=== PATIENT | female | born 1970 | race Caucasian/White ===

== ENCOUNTER 2017-12-13 16:55 | Inpatient (IN) | payer OTHER ==
[2017-12-13 18:28] VITALS: BMI 22.6
--- NOTE | 2017-12-13 20:38 | HP ---
Admission ROS [facility] Chief Complaint: Alcohol withdrawal symptoms Allergies/Adverse Reactions: Allergies Allergy/AdvReac Type Severity Reaction Status Date / Time Penicillins Allergy Rash Verified 12/13/17 19:45 History of Present Illness: 47 years old female with a long history of alcohol dependence is seeking admission to detox. Patient has been to previous detox, last at [facility] in [place] and reports 10 years of sobriety. She has past medical history of asthma, CHF, HTN, seizures, hyperlipidemia, fibromyalgia, anemia, depression and anxiety. She reports suicide attempt in 1990, 1998 and 2013. She denies suicidal ideation at this time. Patient is on methadone 20mg tablet oral daily at [facility]. LDM is today. Dose is to be verified by the nurse. Exam Limitations: No Limitations - Ebola screening Have you traveled outside of the country in the last 21 days: No (N) Have you had contact with anyone from an Ebola affected area: No Have you been sick,other than usual withdrawal symptoms: No Do you have a fever: No - Review of Systems Constitutional: Chills, Loss of Appetite, Malaise, Changes in sleep, Weakness EENT: reports: Sinus Pressure Respiratory: reports: No Symptoms reported Cardiac: reports: No Symptoms Reported GI: reports: Diarrhea (x 2), Nausea, Poor Appetite, Poor Fluid Intake, Vomiting (x 3) : reports: No Symptoms Reported Musculoskeletal: reports: Back Pain Integumentary: reports: Dryness Neuro: reports: Tremors Endocrine: reports: No Symptoms Reported Hematology: reports: Easy Bruising Psychiatric: reports: Anxious, Depressed Other Systems: Reviewed and Negative Patient History - Patient Medical History Hx Asthma: Yes (Pt is on Albuterol IH/SYmbicort) Hx Chronic Obstructive Pulmonary Disease (COPD): No Hx Cancer: No Hx Cardiac Disorders: Yes (CHF) Hx Congestive Heart Failure: Yes (Metoprolol) Hx Hypertension: Yes (Lisinopril, Carvedilol, Metoprolol) Hx Hypercholesterolemia: Yes Hx Seizures: Yes (2013 -Gabapentin) Hx Diabetes: No Hx Gastrointestinal Disorders: No Hx Genitourinary Disorders: No Hx Sexually Transmitted Disorders: Yes (PID - Treated) Hx Renal Disease (ESRD): No Hx Thyroid Disease: No Hx Human Immunodeficiency Virus (HIV): No (Negative 2016) Hx Hepatitis C: No Hx Depression: Yes (Vistaril, Seroquel) Hx Suicide Attempt: Yes (Attempt in 1990, 1998 & 2013. Denies suicidal ideation at this time) Hx Bipolar Disorder: Yes (Seroquel) Hx Schizophrenia: No Other Medical History: Anxiety - Vistaril, Seroquel - Patient Surgical History Past Surgical History: Yes Hx Neurologic Surgery: No Hx Cataract Extraction: No Hx Cardiac Surgery: No Hx Lung Surgery: No Hx Breast Surgery: No Hx Breast Biopsy: No Hx Abdominal Surgery: No Hx Appendectomy: No Hx Cholecystectomy: Yes (2002) Hx Genitourinary Surgery: No Hx Section: Yes (1983, 1987 and 1990) Hx Orthopedic Surgery: No Other Surgical History: TUBAL LIGATION- 1990 Anesthesia Reaction: No - PPD History Previous Implant?: Yes Documented Results: Negative w/o proof Implanted On Prior [facility] Admission?: No PPD to be Administered?: Yes - Reproductive History Patient is a Female of Child Bearing Age (11 -55 yrs old): Yes Last Menstrual Period: 11/30/17 - Smoking Cessation Smoking history: Current every day smoker Have you smoked in the past 12 months: Yes Aproximately how many cigarettes per day: 10 Hx Chewing Tobacco Use: No Initiated information on smoking cessation: Yes 'Breaking Loose' booklet given: 12/13/17 - Substance & Tx. History Hx Alcohol Use: Yes Substance Use Type: Alcohol, Cocaine, Marijuana Hx Substance Use Treatment: Yes ([facility]) - Substances Abused Alcohol Route: Oral Frequency: Daily Amount used: Vodka 3-4 pints, Beer 2-6 cans Age of first use: 28 Date of Last Use: 12/13/17 Crack Route: Smoking Frequency: 1-3 times last 30 days Amount used: $20 Age of first use: 43 Date of Last Use: 12/13/17 Family Disease History - Family Disease History Family Disease History: Diabetes: Mother, Heart Disease: Father (ASTHMA, COPD), Mother, Respiratory: Father Admission Physical Exam S - Vital Signs Vital Signs: Vital Signs - 24 hr 12/13/17 18:23 Temperature 97.5 F L Pulse Rate 86 Respiratory 20 Rate Blood Pressure 130/86 - Physical General Appearance: Yes: Moderate Distress, Thin, Tremorous, Irritable, Sweating , Anxious HEENTM: Yes: EOMI, Normal ENT Inspection, Normocephalic, Normal Voice, TJ, Microcephalic Respiratory: Yes: Normal Breath Sounds, No Respiratory Distress Neck: Yes: Supple Breast: Yes: Breast Exam Deferred Cardiology: Yes: Regular Rhythm, Regular Rate, S1, S2 Abdominal: Yes: Normal Bowel Sounds, Soft Genitourinary: Yes: Within Normal Limits Back: Yes: Normal Inspection Musculoskeletal: Yes: Back pain, Muscle Pain, Muscle weakness Extremities: Yes: Tremors Neurological: Yes: Alert, Normal Mood/Affect Integumentary: Yes: Warm Lymphatic: Yes: Within Normal Limits - Diagnostic (1) Alcohol dependence with uncomplicated withdrawal Current Visit: Yes Status: Chronic (2) Cocaine dependence, uncomplicated Current Visit: Yes Status: Chronic (3) Cannabis dependence, uncomplicated Current Visit: Yes Status: Chronic (4) Sedative, hypnotic or anxiolytic dependence with withdrawal, uncomplicated Current Visit: Yes Status: Chronic (5) HTN (hypertension) Current Visit: Yes Status: Acute (6) Hyperlipidemia Current Visit: Yes Status: Chronic (7) CHF (congestive heart failure) Current Visit: Yes Status: Acute (8) Asthma Current Visit: Yes Status: Acute (9) Depression Current Visit: Yes Status: Chronic (10) Anxiety Current Visit: Yes Status: Chronic (11) Fibromyalgia Current Visit: Yes Status: Chronic (12) Anemia Current Visit: Yes Status: Chronic Qualifiers: Vitamin B12 deficiency anemia type: unspecified B12 deficiency (13) Seizure Current Visit: Yes Status: Chronic BHS Breath Alcohol Content Breath Alcohol Content: 0 Urine Drug Screen - Results Drug Screen Negative: No Urine Drug Screen Results: THC-Marijuana, ALICIA-Cocaine, BZO-Benzodiazepines, MTD- Methadone
[2017-12-13] MEDS ORDERED: chlordiazePOXIDE HCL 25 MG CAPSULE PO PRN (21:15)
[2017-12-13] MEDS ORDERED: guaiFENesin/D-METHORPHAN HB 10 ML UNIT-DOSE CUPS PO PRN (21:15)
[2017-12-13] MEDS ORDERED: MAGNESIUM CITRATE 300 ML BOTTLE PO PRN (21:15)
[2017-12-13] MEDS ORDERED: MENTHOL/PHENOL 1 EACH UD MM PRN (21:15)
[2017-12-13] MEDS ORDERED: MAGNESIUM HYDROX 2400MG/30ML ORAL SUSPENSION 30 ML CUP PO PRN (21:15)
[2017-12-13] MEDS ORDERED: LOPERAMIDE HCL 2 MG CAPSULE PO PRN (21:15)
[2017-12-13] MEDS ORDERED: ACETAMINOPHEN 325 MG TABLET (FP) PO PRN (21:15)
[2017-12-13] MEDS ORDERED: MAG HYDROX/AL HYDROX/SIMETH 30 ML UNIT-DOSE CUP PO PRN (21:15)
[2017-12-13] MEDS ORDERED: P-EPHED 60MG/TRIPROLIDI 2.5MG TABLET PO PRN (21:15)
[2017-12-13] MEDS ORDERED: ALBUTEROL SO4 8 GM HFA INHALER IH PRN (21:17)
[2017-12-13] MEDS ORDERED: MELATONIN 5 MG TABLETS PO PRN (22:00)
[2017-12-13] MEDS: METOPROLOL TARTRATE 25 MG TABLET (FP) PO SCH (22:34)
[2017-12-13] MEDS: THIAMINE HCL 100 MG TABLET (FP) PO SCH (22:35)
[2017-12-13] MEDS: ATORVASTATIN CA 80 MG TABLET (FP) PO SCH (22:35)
[2017-12-13] MEDS: chlordiazePOXIDE HCL 25 MG CAPSULE PO SCH (22:35)
[2017-12-13] MEDS: BUDESONIDE/FORMETEROL FUMARATE 160/4.5 mcg INHALER IH SCH (22:39)
[2017-12-13 23:12] LABS: URINE APPEARANCE SLCLOUDY; URINE BILIRUBIN NEGATIVE (<2.0 mg/dL); URINE COLOR YELLOW; URINE GLUCOSE (UA) NEGATIVE (NEGATIVE); URINE KETONE TRACE (NEGATIVE); URINE LEUK ESTERASE NEGATIVE (NEGATIVE); URINE NITRITE NEGATIVE (NEGATIVE); URINE PROTEIN NEGATIVE (NEGATIVE); URINE UROBILINOGEN NEGATIVE mg/dL (0.2-1.0)
--- NOTE | 2017-12-13 23:33 | HP ---
Admission ROS [facility] Allergies/Adverse Reactions: Allergies Allergy/AdvReac Type Severity Reaction Status Date / Time Penicillins Allergy Rash Verified 12/13/17 19:45 - Ebola screening Have you traveled outside of the country in the last 21 days: No (N) Have you had contact with anyone from an Ebola affected area: No Have you been sick,other than usual withdrawal symptoms: No Do you have a fever: No Patient History - Patient Medical History Hx Asthma: Yes (Pt is on Albuterol IH/SYmbicort) Hx Chronic Obstructive Pulmonary Disease (COPD): No Hx Cancer: No Hx Cardiac Disorders: Yes (CHF) Hx Congestive Heart Failure: Yes (Metoprolol) Hx Hypertension: Yes (Lisinopril, Carvedilol, Metoprolol) Hx Hypercholesterolemia: Yes Hx Seizures: Yes (2013 -Gabapentin) Hx Diabetes: No Hx Gastrointestinal Disorders: No Hx Genitourinary Disorders: No Hx Sexually Transmitted Disorders: Yes (PID - Treated) Hx Renal Disease (ESRD): No Hx Thyroid Disease: No Hx Human Immunodeficiency Virus (HIV): No (Negative 2016) Hx Hepatitis C: No Hx Depression: Yes (Vistaril, Seroquel) Hx Suicide Attempt: Yes (Attempt in 1990, 1998 & 2013. Denies suicidal ideation at this time) Hx Bipolar Disorder: Yes (Seroquel) Hx Schizophrenia: No Other Medical History: Anxiety - Vistaril, Seroquel - Patient Surgical History Past Surgical History: Yes Hx Neurologic Surgery: No Hx Cataract Extraction: No Hx Cardiac Surgery: No Hx Lung Surgery: No Hx Breast Surgery: No Hx Breast Biopsy: No Hx Abdominal Surgery: No Hx Appendectomy: No Hx Cholecystectomy: Yes (2002) Hx Genitourinary Surgery: No Hx Section: Yes (1983, 1987 and 1990) Hx Orthopedic Surgery: No Other Surgical History: TUBAL LIGATION- 1990 Anesthesia Reaction: No - PPD History Previous Implant?: Yes Documented Results: Negative w/o proof Implanted On Prior [facility] Admission?: No Date: 12/15/17 - Reproductive History Last Menstrual Period: 11/30/17 - Smoking Cessation Smoking history: Current every day smoker Have you smoked in the past 12 months: Yes Aproximately how many cigarettes per day: 10 Hx Chewing Tobacco Use: No Initiated information on smoking cessation: Yes - Substances Abused Alcohol Route: Oral Frequency: Daily Amount used: Vodka 3-4 pints, Beer 2-6 cans Age of first use: 28 Date of Last Use: 12/13/17 Crack Route: Smoking Frequency: 1-3 times last 30 days Amount used: $20 Age of first use: 43 Date of Last Use: 12/13/17 Family Disease History - Family Disease History Family Disease History: Diabetes: Mother, Heart Disease: Father (ASTHMA, COPD), Mother, Respiratory: Father Admission Physical Exam BHS - Vital Signs Vital Signs: Vital Signs - 24 hr 12/13/17 12/13/17 18:23 22:14 Temperature 97.5 F L 96.3 F L Pulse Rate 86 94 H Respiratory 20 18 Rate Blood Pressure 130/86 117/72 - Diagnostic (1) Alcohol dependence with uncomplicated withdrawal Current Visit: Yes Status: Chronic (2) Cocaine dependence, uncomplicated Current Visit: Yes Status: Chronic (3) Cannabis dependence, uncomplicated Current Visit: Yes Status: Chronic (4) Sedative, hypnotic or anxiolytic dependence with withdrawal, uncomplicated Current Visit: Yes Status: Chronic (5) HTN (hypertension) Current Visit: Yes Status: Acute (6) Hyperlipidemia Current Visit: Yes Status: Chronic (7) CHF (congestive heart failure) Current Visit: Yes Status: Acute (8) Asthma Current Visit: Yes Status: Acute (9) Depression Current Visit: Yes Status: Chronic (10) Anxiety Current Visit: Yes Status: Chronic (11) Fibromyalgia Current Visit: Yes Status: Chronic (12) Anemia Current Visit: Yes Status: Chronic Qualifiers: Vitamin B12 deficiency anemia type: unspecified B12 deficiency (13) Seizure Current Visit: Yes Status: Chronic BHS Breath Alcohol Content Breath Alcohol Content: 0 Urine Drug Screen - Results Drug Screen Negative: No Urine Drug Screen Results: THC-Marijuana, ALICIA-Cocaine, BZO-Benzodiazepines, MTD- Methadone
[2017-12-13] MEDS: CARVEDILOL 3.125 MG TABLET (FP) PO SCH (23:55)
[2017-12-14] MEDS: chlordiazePOXIDE HCL 25 MG CAPSULE PO SCH ×4 (06:00→23:59)
[2017-12-14] MEDS ORDERED: MULTIVITAMINS (DAILY MVI) TABLET (FP) PO SCH (10:00)
[2017-12-14] MEDS ORDERED: METHADONE HCL 10 MG TABLET PO ONE (10:00)
--- NOTE | 2017-12-14 10:11 | CONSULT ---
[facility] Psychiatric Consult - Data Date of interview: 12/14/17 Admission source: [facility] Identifying data: This is 47 years old female, , mother of THree, homeless, with psychiatric hospitalization history, history of suicidal attempts , with a long history of alcohol dependence, Crack, Cannabis and Nicotine dependence as well, reports withdrawal symptoms amd seeking for detox. Substance Abuse History: - Smoking Cessation. Smoking history: Current every day smoker. Have you smoked in the past 12 months: Yes. Aproximately how many cigarettes per day: 10. Hx Chewing Tobacco Use: No. Initiated information on smoking cessation: Yes. 'Breaking Loose' booklet given: 12/13/17. - Substance & Tx. History. Hx Alcohol Use: Yes. Substance Use Type: Alcohol, Cocaine, Marijuana. Hx Substance Use Treatment: Yes ([facility] - Substances Abused. Alcohol. Route: Oral. Frequency: Daily. Amount used: Vodka 3-4 pints, Beer 2-6 cans. Age of first use: 28. Date of Last Use: . Crack. Route: Smoking. Frequency: 1-3 times last 30 days. Amount used : $20. Age of first use: 43. Date of Last Use: 12/13/17 Medical History: Seizure history, Anemia history, HTN, CHF, Asthma, Hyperlipidemia, Psychiatric History: Patient suffers with Bipolar disorder, reports history of multiple suicidal attempts with last one on 2013 by OD, denies suicidal history since then, reports most recent psychiatric unclear admission on about more then 10 years ago, reports currently taking: Seroquel 100mg po qhs. Topamax 50mg po qhs. Vistaril 50mg po prn qid Physical/Sexual Abuse/Trauma History: Denies Additional Comment: Seroquel 100mg po qhs. Topamax 50mg po qhs. Vistaril 50mg po prn qid Mental Status Exam - Mental Status Exam Alert and Oriented to: Person Cognitive Function: Fair Patient Appearance: Unkempt Mood: Suspicious, Anxious Affect: Labile Patient Behavior: Impulsive, Talkative Speech Pattern: Excessive Voice Loudness: Mildly Loud Thought Process: Circumstantial Thought Disorder: Being Controlled Hallucinations: Denies Suicidal Ideation: Denies Homicidal Ideation: Denies Insight/Judgement: Fair Sleep: Difficulty falling asleep Appetite: Weight loss Muscle strength/Tone: Mild Hypotonicity Gait/Station: Shuffling Additional Comments: Seroquel 100mg po qhs. Topamax 50mg po qhs. Vistaril 50mg po prn qid Psychiatric Findings - Problem List ([place] 1, 2,3) (1) Bipolar disorder Current Visit: Yes Status: Acute (2) Asthma Current Visit: Yes Status: Acute (3) CHF (congestive heart failure) Current Visit: Yes Status: Acute (4) HTN (hypertension) Current Visit: Yes Status: Acute (5) Seizure activity as manifestation of blood transfusion reaction Current Visit: Yes Status: Acute (6) Anemia Current Visit: Yes Status: Chronic Qualifiers: Vitamin B12 deficiency anemia type: unspecified B12 deficiency (7) Cannabis dependence, uncomplicated Current Visit: Yes Status: Chronic (8) Cocaine dependence, uncomplicated Current Visit: Yes Status: Chronic (9) Depression Current Visit: Yes Status: Chronic (10) Fibromyalgia Current Visit: Yes Status: Chronic (11) Sedative, hypnotic or anxiolytic dependence with withdrawal, uncomplicated Current Visit: Yes Status: Chronic (12) Seizure Current Visit: Yes Status: Chronic - Initial Treatment Plan Initial Treatment Plan: Seroquel 100mg po qhs. Topamax 50mg po qhs. Vistaril 50mg po prn qid
[2017-12-14 10:18] LABS: ALBUMIN 3.5 g/dl (3.4-5.0); ANION GAP 6 (8-16); BLOOD UREA NITROGEN 17 mg/dL (7-18); CALCIUM 8.9 mg/dL (8.5-10.1); CHLORIDE 106 mmol/L (98-107); CO2 28 mmol/L (21-32); GLUCOSE,RANDOM 82 mg/dL (74-106); POTASSIUM 4.3 mmol/L (3.5-5.1); SGOT/AST 16 U/L (15-37); SGPT/ALT 18 U/L (12-78); SODIUM 140 mmol/L (136-145)
[2017-12-14 10:19] LABS: HEMATOCRIT 40.1 % (32.4-45.2); HEMOGLOBIN 13.4 GM/dL (10.7-15.3); MCH 30.4 pg (25.7-33.7); MCHC 33.5 g/dl (32.0-36.0); MEAN CELL VOLUME 90.7 fl (80-96); MEAN PLT VOLUME 9.7 fl (7.5-11.1); PLATELET COUNT 254 K/MM3 (134-434); RBC 4.42 M/mm3 (3.60-5.2); RDW 14.6 % (11.6-15.6); WHITE BLOOD COUNT 8.8 K/mm3 (4.0-10.0)
[2017-12-14 10:20] LABS: ALK PHOS 66 U/L (45-117); BILIRUBIN,TOTAL 0.3 mg/dL (0.2-1.0); TOT PROT 6.9 g/dl (6.4-8.2)
[2017-12-14] MEDS: ASPIRIN 81 MG CHEWABLE TABLETS PO SCH (10:45)
[2017-12-14] MEDS: PRENATAL VITAMINS W/ FOLIC ACID TABLET (FP) PO SCH (10:45)
[2017-12-14] MEDS: hydrOXYzine PAMOATE 50 MG CAPSULE (FP) PO SCH ×3 (10:45→18:55)
[2017-12-14] MEDS: CYANOCOBALAMIN 1,000 MCG TABLET (FP) PO SCH (10:45)
[2017-12-14] MEDS: METOPROLOL TARTRATE 25 MG TABLET (FP) PO SCH ×2 (10:45→23:59)
[2017-12-14] MEDS: LISINOPRIL 10 MG TABLET (FP) PO SCH (10:45)
[2017-12-14] MEDS: CARVEDILOL 3.125 MG TABLET (FP) PO SCH ×2 (10:45→23:59)
--- NOTE | 2017-12-14 10:45 | PN ---
[facility] CIWA - CIWA Score Nausea/Vomitin Muscle Tremors: 3 Anxiety: 3 Agitation: 2 Paroxysmal Sweats: 1-Minimal Palms Moist Orientation: 0-Oriented Tacttile Disturbances: 1-Very Mild Itch/Numbness Auditory Disturbances: 1-Very Mild Visual Disturbances: 2-Mild Sensitivity Headache: 2-Mild CIWA-Ar Total Score: 18 BHS Progress Note (SOAP) Subjective: alert,irritable,anxious,interrupted sleep,tremor,pain in the body Objective: 12/14/17 10:42 Vital Signs Temperature 97.5 F L 12/14/17 09:55 Pulse Rate 89 12/14/17 09:55 Respiratory Rate 17 12/14/17 09:55 Blood Pressure 109/72 12/14/17 09:55 O2 Sat by Pulse Oximetry (%) ekg nsr with marked sinus arrhythmia qt 404/432 no chest pain,no sob,no dizziness Laboratory Last Values WBC 8.8 K/mm3 (4.0-10.0) 12/14/17 07:00 RBC 4.42 M/mm3 (3.60-5.2) 12/14/17 07:00 Hgb 13.4 GM/dL (10.7-15.3) 12/14/17 07:00 Hct 40.1 % (32.4-45.2) 12/14/17 07:00 MCV 90.7 fl (80-96) 12/14/17 07:00 MCH 30.4 pg (25.7-33.7) 12/14/17 07:00 MCHC 33.5 g/dl (32.0-36.0) 12/14/17 07:00 RDW 14.6 % (11.6-15.6) 12/14/17 07:00 Plt Count 254 K/MM3 (134-434) 12/14/17 07:00 MPV 9.7 fl (7.5-11.1) 12/14/17 07:00 Sodium 140 mmol/L (136-145) 12/14/17 07:00 Potassium 4.3 mmol/L (3.5-5.1) 12/14/17 07:00 Chloride 106 mmol/L (98-107) 12/14/17 07:00 Carbon Dioxide 28 mmol/L (21-32) 12/14/17 07:00 Anion Gap 6 (8-16) L 12/14/17 07:00 BUN 17 mg/dL (7-18) 12/14/17 07:00 Creatinine 1.0 mg/dL (0.55-1.02) 12/14/17 07:00 Creat Clearance w eGFR 58.93 (>60) 12/14/17 07:00 Random Glucose 82 mg/dL (74-106) 12/14/17 07:00 Calcium 8.9 mg/dL (8.5-10.1) 12/14/17 07:00 Total Bilirubin 0.3 mg/dL (0.2-1.0) 12/14/17 07:00 AST 16 U/L (15-37) 12/14/17 07:00 ALT 18 U/L (12-78) 12/14/17 07:00 Alkaline Phosphatase 66 U/L (45-117) 12/14/17 07:00 Total Protein 6.9 g/dl (6.4-8.2) 12/14/17 07:00 Albumin 3.5 g/dl (3.4-5.0) 12/14/17 07:00 Urine Color Yellow 12/13/17 Unknown Urine Appearance Slcloudy 12/13/17 Unknown Urine pH 5.0 (5.0-8.0) 12/13/17 Unknown Ur Specific [place] 1.018 (1.001-1.035) 12/13/17 Unknown Urine Protein Negative (NEGATIVE) 12/13/17 Unknown Urine Glucose (UA) Negative (NEGATIVE) 12/13/17 Unknown Urine Ketones Trace (NEGATIVE) H 12/13/17 Unknown Urine Blood Negative (NEGATIVE) 12/13/17 Unknown Urine Nitrite Negative (NEGATIVE) 12/13/17 Unknown Urine Bilirubin Negative (<2.0 mg/dL) 12/13/17 Unknown Urine Urobilinogen Negative mg/dL (0.2-1.0) 12/13/17 Unknown Ur Leukocyte Esterase Negative (NEGATIVE) 12/13/17 Unknown Assessment: 12/14/17 10:44 withdrawal symptom Plan: continue detox
[2017-12-14] MEDS: BUDESONIDE/FORMETEROL FUMARATE 160/4.5 mcg INHALER IH SCH (10:46)
[2017-12-14] MEDS: NICOTINE 14 MG/24 HOURS TOPICAL PATCH TD SCH (10:46)
--- NOTE | 2017-12-14 16:22 | EKG ---
Test Reason : Blood Pressure : / mmHG Vent. Rate : 069 BPM Atrial Rate : 069 BPM P-R Int : 128 ms QRS Dur : 088 ms QT Int : 404 ms P-R-T Axes : 075 053 048 degrees QTc Int : 432 ms SINUS RHYTHM WITH MARKED SINUS ARRHYTHMIA OTHERWISE NORMAL ECG NO PREVIOUS ECGS AVAILABLE Confirmed by LEE CONTI, POOJA ([id number]) on 12/14/2017 4:21:56 PM Referred By: Confirmed By:POOJA HOWARD MD
[2017-12-14] MEDS: ATORVASTATIN CA 80 MG TABLET (FP) PO SCH (23:59)
[2017-12-15] MEDS: chlordiazePOXIDE HCL 25 MG CAPSULE PO SCH ×3 (05:25→17:18)
[2017-12-15] MEDS: METHADONE HCL 10 MG TABLET PO SCH (05:25)
--- NOTE | 2017-12-15 09:45 | PN ---
[facility] CIWA - CIWA Score Nausea/Vomitin Muscle Tremors: 2 Anxiety: 2 Agitation: 3 Paroxysmal Sweats: 1-Minimal Palms Moist Orientation: 0-Oriented Tacttile Disturbances: 1-Very Mild Itch/Numbness Auditory Disturbances: 1-Very Mild Visual Disturbances: 0-None Headache: 2-Mild CIWA-Ar Total Score: 15 BHS Progress Note (SOAP) Subjective: ALERT,IRRITABLE,ANXIOUS,INTERRUPTED SLEEP,TREMOR Objective: 12/15/17 09:43 Vital Signs Temperature 97.9 F 12/15/17 06:37 Pulse Rate 80 12/15/17 06:37 Respiratory Rate 18 12/15/17 06:37 Blood Pressure 115/61 12/15/17 06:37 O2 Sat by Pulse Oximetry (%) Laboratory Last Values WBC 8.8 K/mm3 (4.0-10.0) 12/14/17 07:00 RBC 4.42 M/mm3 (3.60-5.2) 12/14/17 07:00 Hgb 13.4 GM/dL (10.7-15.3) 12/14/17 07:00 Hct 40.1 % (32.4-45.2) 12/14/17 07:00 MCV 90.7 fl (80-96) 12/14/17 07:00 MCH 30.4 pg (25.7-33.7) 12/14/17 07:00 MCHC 33.5 g/dl (32.0-36.0) 12/14/17 07:00 RDW 14.6 % (11.6-15.6) 12/14/17 07:00 Plt Count 254 K/MM3 (134-434) 12/14/17 07:00 MPV 9.7 fl (7.5-11.1) 12/14/17 07:00 Sodium 140 mmol/L (136-145) 12/14/17 07:00 Potassium 4.3 mmol/L (3.5-5.1) 12/14/17 07:00 Chloride 106 mmol/L (98-107) 12/14/17 07:00 Carbon Dioxide 28 mmol/L (21-32) 12/14/17 07:00 Anion Gap 6 (8-16) L 12/14/17 07:00 BUN 17 mg/dL (7-18) 12/14/17 07:00 Creatinine 1.0 mg/dL (0.55-1.02) 12/14/17 07:00 Creat Clearance w eGFR 58.93 (>60) 12/14/17 07:00 Random Glucose 82 mg/dL (74-106) 12/14/17 07:00 Calcium 8.9 mg/dL (8.5-10.1) 12/14/17 07:00 Total Bilirubin 0.3 mg/dL (0.2-1.0) 12/14/17 07:00 AST 16 U/L (15-37) 12/14/17 07:00 ALT 18 U/L (12-78) 12/14/17 07:00 Alkaline Phosphatase 66 U/L (45-117) 12/14/17 07:00 Total Protein 6.9 g/dl (6.4-8.2) 12/14/17 07:00 Albumin 3.5 g/dl (3.4-5.0) 12/14/17 07:00 Urine Color Yellow 12/13/17 Unknown Urine Appearance Slcloudy 12/13/17 Unknown Urine pH 5.0 (5.0-8.0) 12/13/17 Unknown Ur Specific [place] 1.018 (1.001-1.035) 12/13/17 Unknown Urine Protein Negative (NEGATIVE) 12/13/17 Unknown Urine Glucose (UA) Negative (NEGATIVE) 12/13/17 Unknown Urine Ketones Trace (NEGATIVE) H 12/13/17 Unknown Urine Blood Negative (NEGATIVE) 12/13/17 Unknown Urine Nitrite Negative (NEGATIVE) 12/13/17 Unknown Urine Bilirubin Negative (<2.0 mg/dL) 12/13/17 Unknown Urine Urobilinogen Negative mg/dL (0.2-1.0) 12/13/17 Unknown Ur Leukocyte Esterase Negative (NEGATIVE) 12/13/17 Unknown RPR Titer Nonreactive (NONREACTIVE) 12/14/17 07:00 HIV 1&2 Antibody Screen Negative 12/14/17 07:00 HIV P24 Antigen Negative 12/14/17 07:00 Assessment: 12/15/17 09:44 WITHDRAWAL SYMPTOM Plan: CONTINUE DETOX
[2017-12-15] MEDS: ASPIRIN 81 MG CHEWABLE TABLETS PO SCH (10:16)
[2017-12-15] MEDS: LISINOPRIL 10 MG TABLET (FP) PO SCH (10:17)
[2017-12-15] MEDS: PRENATAL VITAMINS W/ FOLIC ACID TABLET (FP) PO SCH (10:17)
[2017-12-15] MEDS: hydrOXYzine PAMOATE 50 MG CAPSULE (FP) PO SCH ×5 (10:17→22:23)
[2017-12-15] MEDS: BUDESONIDE/FORMETEROL FUMARATE 160/4.5 mcg INHALER IH SCH ×3 (10:17→22:25)
[2017-12-15] MEDS: METOPROLOL TARTRATE 25 MG TABLET (FP) PO SCH ×2 (10:17→23:25)
[2017-12-15] MEDS: CYANOCOBALAMIN 1,000 MCG TABLET (FP) PO SCH (10:17)
[2017-12-15] MEDS: CARVEDILOL 3.125 MG TABLET (FP) PO SCH ×2 (10:17→23:26)
[2017-12-15] MEDS: NICOTINE 14 MG/24 HOURS TOPICAL PATCH TD SCH (10:18)
[2017-12-15] MEDS: NICOTINE POLACRILEX 2 MG GUM BC PRN (10:21)
[2017-12-15] MEDS: chlordiazePOXIDE 5 MG CAPSULE PO SCH (22:20)
[2017-12-15] MEDS: QUEtiapine FUMARATE 100 MG TABLET (FP) PO SCH ×2 (22:22)
[2017-12-15] MEDS: TOPIRAMATE 25 MG TABLET (FP) PO SCH ×2 (22:22)
[2017-12-15] MEDS: THIAMINE HCL 100 MG TABLET (FP) PO SCH ×2 (22:22)
[2017-12-15] MEDS: ATORVASTATIN CA 80 MG TABLET (FP) PO SCH (22:23)
[2017-12-16] MEDS: chlordiazePOXIDE 5 MG CAPSULE PO SCH ×3 (05:49→17:23)
[2017-12-16] MEDS: METHADONE HCL 10 MG TABLET PO SCH (05:49)
[2017-12-16] MEDS: hydrOXYzine PAMOATE 50 MG CAPSULE (FP) PO SCH ×4 (10:11→22:06)
[2017-12-16] MEDS: CARVEDILOL 3.125 MG TABLET (FP) PO SCH ×2 (10:11→22:06)
[2017-12-16] MEDS: ASPIRIN 81 MG CHEWABLE TABLETS PO SCH (10:11)
[2017-12-16] MEDS: METOPROLOL TARTRATE 25 MG TABLET (FP) PO SCH ×2 (10:12→22:08)
[2017-12-16] MEDS: NICOTINE 14 MG/24 HOURS TOPICAL PATCH TD SCH (10:12)
[2017-12-16] MEDS: BUDESONIDE/FORMETEROL FUMARATE 160/4.5 mcg INHALER IH SCH ×2 (10:12→22:09)
[2017-12-16] MEDS: CYANOCOBALAMIN 1,000 MCG TABLET (FP) PO SCH (10:12)
[2017-12-16] MEDS: PRENATAL VITAMINS W/ FOLIC ACID TABLET (FP) PO SCH (10:12)
[2017-12-16] MEDS: LISINOPRIL 10 MG TABLET (FP) PO SCH (10:12)
[2017-12-16] MEDS: NICOTINE POLACRILEX 2 MG GUM BC PRN (10:16)
--- NOTE | 2017-12-16 16:33 | PN ---
BHS Progress Note (SOAP) Subjective: Sweats Sleep disturbance Shakes Objective: 12/16/17 16:32 A & O x 3 Not in acute distress 12/16/17 16:32 Vital Signs Temperature 98.1 F 12/16/17 15:03 Pulse Rate 81 12/16/17 15:03 Respiratory Rate 16 12/16/17 15:03 Blood Pressure 101/69 12/16/17 15:03 O2 Sat by Pulse Oximetry (%) Assessment: 12/16/17 16:32 Withdrawal sx Plan: continue detox
[2017-12-16] MEDS: TOPIRAMATE 25 MG TABLET (FP) PO SCH (22:07)
[2017-12-16] MEDS: chlordiazePOXIDE HCL 10 MG CAPSULE PO SCH (22:08)
[2017-12-16] MEDS: QUEtiapine FUMARATE 100 MG TABLET (FP) PO SCH (22:08)
[2017-12-16] MEDS: ATORVASTATIN CA 80 MG TABLET (FP) PO SCH (22:08)
[2017-12-16] MEDS: THIAMINE HCL 100 MG TABLET (FP) PO SCH (22:09)
[2017-12-17] MEDS: METHADONE HCL 10 MG TABLET PO SCH (06:05)
[2017-12-17] MEDS: chlordiazePOXIDE HCL 10 MG CAPSULE PO SCH ×2 (06:05→11:04)
--- NOTE | 2017-12-17 08:56 | DS ---
[facility] Detox Discharge Summary Admission Date: 12/13/17 Discharge Date: 12/17/17 - History Present History: Alcohol Dependence Additional Comments: 47 years old female admitted 12/13/17 for alcohol withdrawal sx completed alcohol detox regimen tolerated well denies alcohol withdrawal sx alert oriented x 3 no acute distress aftercare methadone maintenance program [facility] - Physical Exam Results Vital Signs: Vital Signs Temperature 98.1 F 12/17/17 06:00 Pulse Rate 79 12/17/17 06:00 Respiratory Rate 18 12/17/17 06:00 Blood Pressure 106/75 12/17/17 06:00 O2 Sat by Pulse Oximetry (%) Pertinent Admission Physical Exam Findings: alcohol withdrawal sx Vital Signs Temperature 98.1 F 12/17/17 06:00 Pulse Rate 79 12/17/17 06:00 Respiratory Rate 18 12/17/17 06:00 Blood Pressure 106/75 12/17/17 06:00 O2 Sat by Pulse Oximetry (%) Laboratory Last Values WBC 8.8 K/mm3 (4.0-10.0) 12/14/17 07:00 RBC 4.42 M/mm3 (3.60-5.2) 12/14/17 07:00 Hgb 13.4 GM/dL (10.7-15.3) 12/14/17 07:00 Hct 40.1 % (32.4-45.2) 12/14/17 07:00 MCV 90.7 fl (80-96) 12/14/17 07:00 MCH 30.4 pg (25.7-33.7) 12/14/17 07:00 MCHC 33.5 g/dl (32.0-36.0) 12/14/17 07:00 RDW 14.6 % (11.6-15.6) 12/14/17 07:00 Plt Count 254 K/MM3 (134-434) 12/14/17 07:00 MPV 9.7 fl (7.5-11.1) 12/14/17 07:00 Sodium 140 mmol/L (136-145) 12/14/17 07:00 Potassium 4.3 mmol/L (3.5-5.1) 12/14/17 07:00 Chloride 106 mmol/L (98-107) 12/14/17 07:00 Carbon Dioxide 28 mmol/L (21-32) 12/14/17 07:00 Anion Gap 6 (8-16) L 12/14/17 07:00 BUN 17 mg/dL (7-18) 12/14/17 07:00 Creatinine 1.0 mg/dL (0.55-1.02) 12/14/17 07:00 Creat Clearance w eGFR 58.93 (>60) 12/14/17 07:00 Random Glucose 82 mg/dL (74-106) 12/14/17 07:00 Calcium 8.9 mg/dL (8.5-10.1) 12/14/17 07:00 Total Bilirubin 0.3 mg/dL (0.2-1.0) 12/14/17 07:00 AST 16 U/L (15-37) 12/14/17 07:00 ALT 18 U/L (12-78) 12/14/17 07:00 Alkaline Phosphatase 66 U/L (45-117) 12/14/17 07:00 Total Protein 6.9 g/dl (6.4-8.2) 12/14/17 07:00 Albumin 3.5 g/dl (3.4-5.0) 12/14/17 07:00 Urine Color Yellow 12/13/17 Unknown Urine Appearance Slcloudy 12/13/17 Unknown Urine pH 5.0 (5.0-8.0) 12/13/17 Unknown Ur Specific [place] 1.018 (1.001-1.035) 12/13/17 Unknown Urine Protein Negative (NEGATIVE) 12/13/17 Unknown Urine Glucose (UA) Negative (NEGATIVE) 12/13/17 Unknown Urine Ketones Trace (NEGATIVE) H 12/13/17 Unknown Urine Blood Negative (NEGATIVE) 12/13/17 Unknown Urine Nitrite Negative (NEGATIVE) 12/13/17 Unknown Urine Bilirubin Negative (<2.0 mg/dL) 12/13/17 Unknown Urine Urobilinogen Negative mg/dL (0.2-1.0) 12/13/17 Unknown Ur Leukocyte Esterase Negative (NEGATIVE) 12/13/17 Unknown RPR Titer Nonreactive (NONREACTIVE) 12/14/17 07:00 HIV 1&2 Antibody Screen Negative 12/14/17 07:00 HIV P24 Antigen Negative 12/14/17 07:00 lab noted - Treatment Hospital Course: Detox Protocol Followed, Detoxed Safely, Responded well, Discharged Condition Good, Rehab Referral Accepted Patient has Accepted a Rehab Referral to: methadone maintenance program [facility] - Medication Discharge Medications: Ambulatory Orders Aspirin 81 mg PO DAILY 12/13/17 Cyanocobalamin (Vitamin B-12) [Vitamin B-12] 1 tab PO DAILY 12/13/17 Multivitamin [One Daily] 1 each PO DAILY 12/13/17 Methadone [Dolophine -] 20 mg PO DAILY 12/14/17 Quetiapine Fumarate [Seroquel -] 100 mg PO HS #30 tablet 12/14/17 Topiramate [Topamax -] 50 mg PO HS #30 tablet 12/14/17 hydrOXYzine PAMOATE [Vistaril -] 50 mg PO QID #90 capsule 12/14/17 Albuterol Sulfate Inhaler - [Ventolin HFA Inhaler -] 2 inh PO Q4H PRN #1 inhaler 12/17/17 Atorvastatin Ca [Lipitor] 80 mg PO HS #30 tablet 12/17/17 Budesonide/Formeterol Fumarate [SYMBICORT 160/4.5mcg -] 2 inh PO BID #1 inhaler 12/17/17 Carvedilol [Coreg -] 3.125 mg PO BID #60 tablet 12/17/17 Gabapentin [Neurontin -] 400 mg PO Q8H #90 capsule 12/17/17 Lisinopril [Prinivil] 10 mg PO DAILY #30 tablet 12/17/17 Metoprolol Tartrate [Lopressor -] 25 mg PO BID #60 tablet 12/17/17 - Diagnosis (1) Asthma Current Visit: Yes Status: Chronic Qualifiers: Asthma severity: mild Asthma persistence: intermittent Asthma complication type: with status asthmaticus Qualified Code(s): J45.22 - Mild intermittent asthma with status asthmaticus (2) Alcohol dependence with uncomplicated withdrawal Current Visit: Yes Status: Acute (3) HTN (hypertension) Current Visit: Yes Status: Chronic Qualifiers: Hypertension type: essential hypertension Qualified Code(s): I10 - Essential (primary) hypertension (4) Hyperlipidemia Current Visit: Yes Status: Chronic Qualifiers: Hyperlipidemia type: pure hypercholesterolemia Qualified Code(s): E78.00 - Pure hypercholesterolemia, unspecified; E78.0 - Pure hypercholesterolemia (5) Methadone maintenance therapy patient Current Visit: Yes Status: Chronic - AMA Did Patient Leave Against Medical Advice: No
[2017-12-17 10:17] VITALS: BP 102/63; PULSE 75; TEMP 97.9
[2017-12-17] MEDS: ASPIRIN 81 MG CHEWABLE TABLETS PO SCH (11:02)
[2017-12-17] MEDS: LISINOPRIL 10 MG TABLET (FP) PO SCH (11:03)
[2017-12-17] MEDS: hydrOXYzine PAMOATE 50 MG CAPSULE (FP) PO SCH (11:03)
[2017-12-17] MEDS: METOPROLOL TARTRATE 25 MG TABLET (FP) PO SCH (11:03)
[2017-12-17] MEDS: CARVEDILOL 3.125 MG TABLET (FP) PO SCH (11:03)
[2017-12-17] MEDS: NICOTINE 14 MG/24 HOURS TOPICAL PATCH TD SCH (11:03)
[2017-12-17] MEDS: PRENATAL VITAMINS W/ FOLIC ACID TABLET (FP) PO SCH (11:03)
[2017-12-17] MEDS: CYANOCOBALAMIN 1,000 MCG TABLET (FP) PO SCH (11:03)
[2017-12-17] MEDS: BUDESONIDE/FORMETEROL FUMARATE 160/4.5 mcg INHALER IH SCH (11:04)
== END 2017-12-17 09:40 | disposition home or self-care (01) | DRG 773 ==
LOC: YASAS 16:55 → Y6N 20:43
PROVIDERS: ADMIT Surgery; ATTEND Surgery
PROC: HZ2ZZZZ Detoxification Services for Substance Abuse Treatment (ICD-10-PCS; principal; 2017-12-13)
DX: F11.20 Opioid dependence, uncomplicated (principal); F13.230 Sedative, hypnotic or anxiolytic dependence with withdrawal, uncomplicated; F10.230 Alcohol dependence with withdrawal, uncomplicated; F14.20 Cocaine dependence, uncomplicated; F12.20 Cannabis dependence, uncomplicated; F41.9 Anxiety disorder, unspecified; F31.9 Bipolar disorder, unspecified; I10 Essential (primary) hypertension; I50.9 Heart failure, unspecified; J45.22 Mild intermittent asthma with status asthmaticus; R56.9 Unspecified convulsions; M79.7 Fibromyalgia; Z91.5 Personal history of self-harm
CPT/HCPCS: 36415; 80053; 81003; 85027; 86593; 87389; 93005; 93010

== ENCOUNTER 2018-07-04 17:44 | Inpatient (IN) | payer OTHER ==
[2018-07-04 18:43] VITALS: BMI 20.9
[2018-07-04] MEDS ORDERED: MELATONIN 5 MG TABLETS PO PRN (22:00)
--- NOTE | 2018-07-04 22:11 | HP ---
CIWA Score Nausea/Vomitin Muscle Tremors: 4-Moderate,w/Arms Extend Anxiety: 4-Mod. Anxious/Guarded Agitation: 4-Moderately Restless Paroxysmal Sweats: 3 Orientation: 2-Disoriented Date<2 days Tacttile Disturbances: 0-None Auditory Disturbances: 0-None Visual Disturbances: 0-None Headache: 2-Mild CIWA-Ar Total Score: 21 - Admission Criteria OASAS Guidelines: Admission for Medically Managed Detox: Requires at least one of the followin. CIWA greater than 12 2. Seizures within the past 24 hours 3. Delirium tremens within the past 24 hours 4. Hallucinations within the past 24 hours 5. Acute intervention needed for co occurring medical disorder 6. Acute intervention needed for co occurring psychiatric disorder 7. Severe withdrawal that cannot be handled at a lower level of care (continued vomiting, continued diarrhea, abnormal vital signs) requiring intravenous medication and/or fluids 8. Patient presents the following: Acute intervention needed for co-occurring med or psych disorder Admission Criteria Met: Admission criteria met Admission ROS [facility] Chief Complaint: C/O WITHDRAWAL SX'S. SEEKING DETOX Allergies/Adverse Reactions: Allergies Allergy/AdvReac Type Severity Reaction Status Date / Time Penicillins Allergy Rash Verified 07/04/18 20:38 History of Present Illness: 48 Y.O. FEMALE WITH HX/O ALCOHOLISM HERE FOR DETOX. CLIENT IS KNOWN TO THIS PROGRAM. LAST ADMISSION 12/13/2017- 12/17/2017. SHE IS REFERRED BY HER OUTPATIENT PROGRAM [facility] WHERE IS IS CURRENTLY ON METHADONE 30 MG DAILY ALL PENDING VERIFICATION. PRESENTS TODAY W/ C/O WITHDRAWAL SX'S. CIWA 21. DENIES SI/HI, AVH , SEIZURE D/O, HX/O DRUG OVERDOSE. REPORTS SHE IS HOMELESS, UNEMPLOYED, DENIES LEGALS PMHX- ASTHMA, CHF, FIBROMYALGIA PSYCH- BIPOLAR, DEPRESSION Exam Limitations: Physical Impairment (AMBULATES WITH CANE 2/2 PAIN) - Ebola screening Have you traveled outside of the country in the last 21 days: No (N) Have you had contact with anyone from an Ebola affected area: No Have you been sick,other than usual withdrawal symptoms: No Do you have a fever: No - Review of Systems Constitutional: Chills, Loss of Appetite, Malaise, Night Sweats, Changes in sleep, Weakness (GENRALIZED) EENT: reports: Dental Problems (MISSING TEETH) Respiratory: reports: No Symptoms reported Cardiac: reports: No Symptoms Reported GI: reports: Diarrhea, Nausea, Poor Appetite, Vomiting, Abdominal cramping : reports: No Symptoms Reported Musculoskeletal: reports: Joint Pain Integumentary: reports: No Symptoms Reported Neuro: reports: No Symptoms reported Endocrine: reports: No Symptoms Reported Hematology: reports: No Symptoms Reported Psychiatric: reports: Depressed Other Systems: Reviewed and Negative Patient History - Patient Medical History Hx Anemia: No Hx Asthma: Yes (Pt is on Albuterol IH/SYmbicort) Hx Chronic Obstructive Pulmonary Disease (COPD): No Hx Cancer: No Hx Cardiac Disorders: Yes (CHF) Hx Congestive Heart Failure: Yes (Metoprolol) Hx Hypertension: Yes (Lisinopril, Carvedilol, Metoprolol) Hx Hypercholesterolemia: Yes Hx Pacemaker: No HX Cerebrovascular Accident: No Hx Seizures: No Hx Diabetes: No Hx Gastrointestinal Disorders: No Hx Liver Disease: No Hx Genitourinary Disorders: No Hx Sexually Transmitted Disorders: Yes (PID - Treated) Hx Renal Disease (ESRD): No Hx Thyroid Disease: No Hx Human Immunodeficiency Virus (HIV): No (Negative 2016) Hx Hepatitis C: No Hx Depression: Yes (Vistaril, Seroquel) Hx Suicide Attempt: Yes (Attempt in 1990, 1998 & 2013. Denies suicidal ideation at this time) Hx Bipolar Disorder: Yes (Seroquel) Hx Schizophrenia: No - Patient Surgical History Past Surgical History: Yes Hx Neurologic Surgery: No Hx Cataract Extraction: No Hx Cardiac Surgery: No Hx Lung Surgery: No Hx Breast Surgery: No Hx Breast Biopsy: No Hx Abdominal Surgery: No Hx Appendectomy: No Hx Cholecystectomy: Yes (2002) Hx Genitourinary Surgery: No Hx Section: Yes (1983, 1987 and 1990) Hx Orthopedic Surgery: No Other Surgical History: TUBAL LIGATION- 1990 Anesthesia Reaction: No - PPD History Previous Implant?: Yes Documented Results: Negative w/proof Implanted On Prior [facility] Admission?: Yes Date: 12/15/17 Results: 0MM PPD to be Administered?: No - Reproductive History Patient is a Female of Child Bearing Age (11 -55 yrs old): Yes Last Menstrual Period: 11/30/17 LMP comment: IRREG [facility] - Smoking Cessation Smoking history: Current every day smoker Have you smoked in the past 12 months: Yes Aproximately how many cigarettes per day: 5 Cigars Per Day: 0 Hx Chewing Tobacco Use: No Initiated information on smoking cessation: Yes 'Breaking Loose' booklet given: 07/04/18 - Substance & Tx. History Hx Alcohol Use: Yes Hx Substance Use: Yes Substance Use Type: Alcohol, Cocaine Hx Substance Use Treatment: Yes ([facility]) - Substances Abused Alcohol Route: Oral Frequency: Daily Amount used: LIQUPR- 3 PINTS, BEER- 3 (40oz) Age of first use: 10 Date of Last Use: 07/03/18 Cocaine Route: Smoking Frequency: Daily Amount used: $200 Age of first use: 35 Date of Last Use: 07/03/18 Family Disease History - Family Disease History Family Disease History: Diabetes: Mother, Heart Disease: Father (ASTHMA, COPD), Mother, Respiratory: Father Admission Physical Exam [facility] - Vital Signs Vital Signs: Vital Signs - 24 hr 07/04/18 18:42 Temperature 98.8 F Pulse Rate 115 H Respiratory 18 Rate Blood Pressure 125/82 - Physical General Appearance: Yes: Appropriately Dressed, Tremorous (FELT), Other ( DEPRESSED AFFECT) HEENTM: Yes: EOMI, Normocephalic, Normal Voice, TJ, Pharynx Normal, Other ( POOR DENTITION, MISSING TEETH) Respiratory: Yes: Chest Non-Tender, Lungs Clear, Normal Breath Sounds, No Respiratory Distress, No Accessory Muscle Use Neck: Yes: No masses,lesions,Nodules, Supple, Trachea in good position Breast: Yes: Breast Exam Deferred Cardiology: Yes: Regular Rhythm, Regular Rate, S1, S2 Abdominal: Yes: Non Tender, Flat, Soft, Increased Bowel Sounds Genitourinary: Yes: Other (NO C/O) Back: Yes: Normal Inspection Musculoskeletal: Yes: full range of Motion, Other (AMBULATES WITH MAGED 2/2 PAIN) Extremities: Yes: Normal Capillary Refill, Normal Range of Motion, Non-Tender, Tremors Neurological: Yes: Alert, Motor Strength 5/5, Depressed Affect Integumentary: Yes: Dry, Warm, Track [place] Lymphatic: Yes: Within Normal Limits - Diagnostic (1) Alcohol dependence with uncomplicated withdrawal Current Visit: Yes Status: Acute (2) Bipolar disorder Current Visit: Yes Status: Chronic (3) CHF (congestive heart failure) Current Visit: Yes Status: Chronic Qualifiers: Heart failure type: unspecified (4) Asthma Current Visit: Yes Status: Chronic Qualifiers: Asthma severity: mild Asthma persistence: intermittent Asthma complication type: with status asthmaticus Qualified Code(s): J45.22 - Mild intermittent asthma with status asthmaticus (5) Cocaine dependence, uncomplicated Current Visit: Yes Status: Chronic (6) Fibromyalgia Current Visit: Yes Status: Chronic (7) HTN (hypertension) Current Visit: Yes Status: Chronic Qualifiers: Hypertension type: essential hypertension Qualified Code(s): I10 - Essential (primary) hypertension (8) Hyperlipidemia Current Visit: Yes Status: Chronic Qualifiers: Hyperlipidemia type: pure hypercholesterolemia Qualified Code(s): E78.00 - Pure hypercholesterolemia, unspecified; E78.0 - Pure hypercholesterolemia (9) Methadone maintenance therapy patient Current Visit: Yes Status: Chronic Cleared for Admission [facility] - Detox or Rehab S Level of Care: Medically Managed Detox Regimen/Protocol: Librium Claeared for Rehab Admission: No [facility] Breath Alcohol Content Breath Alcohol Content: 0 Urine Pregancy Test - Result Urine Test Results: Negative- NO Line Present Urine Drug Screen - Results Drug Screen Negative: No Urine Drug Screen Results: ALICIA-Cocaine, MTD-Methadone
[2018-07-04] MEDS ORDERED: ACETAMINOPHEN 325 MG TABLET (FP) PO PRN (22:17)
[2018-07-04] MEDS ORDERED: LOPERAMIDE HCL 2 MG CAPSULE PO PRN (22:17)
[2018-07-04] MEDS ORDERED: P-EPHED 60MG/TRIPROLIDI 2.5MG TABLET PO PRN (22:17)
[2018-07-04] MEDS ORDERED: hydrOXYzine PAMOATE 50 MG CAPSULE (FP) PO PRN (22:17)
[2018-07-04] MEDS ORDERED: MAGNESIUM HYDROX 2400MG/30ML ORAL SUSPENSION 30 ML CUP PO PRN (22:17)
[2018-07-04] MEDS ORDERED: MAGNESIUM CITRATE 300 ML BOTTLE PO PRN (22:17)
[2018-07-04] MEDS ORDERED: IBUPROFEN 400 MG TABLET (FP) PO PRN (22:17)
[2018-07-04] MEDS ORDERED: NICOTINE POLACRILEX 2 MG GUM BC PRN (22:17)
[2018-07-04] MEDS ORDERED: chlordiazePOXIDE HCL 25 MG CAPSULE PO PRN (22:17)
[2018-07-04] MEDS ORDERED: MENTHOL/PHENOL 1 EACH UD MM PRN (22:17)
[2018-07-04] MEDS ORDERED: MAG HYDROX/AL HYDROX/SIMETH 30 ML UNIT-DOSE CUP PO PRN (22:17)
[2018-07-04] MEDS ORDERED: guaiFENesin/D-METHORPHAN HB 10 ML UNIT-DOSE CUPS PO PRN (22:17)
[2018-07-04] MEDS: chlordiazePOXIDE HCL 25 MG CAPSULE PO SCH (23:15)
[2018-07-05] MEDS: ALBUTEROL SO4 8 GM HFA INHALER IH PRN (01:36)
[2018-07-05 01:55] LABS: URINE APPEARANCE SLCLOUDY; URINE BILIRUBIN NEGATIVE (<2.0 mg/dL); URINE GLUCOSE (UA) NEGATIVE (NEGATIVE); URINE KETONE NEGATIVE (NEGATIVE); URINE LEUK ESTERASE 1+ (NEGATIVE); URINE NITRITE POSITIVE (NEGATIVE); URINE PROTEIN 1+ (NEGATIVE); URINE UROBILINOGEN 4.0 E.U/dl mg/dL (0.2-1.0)
[2018-07-05 01:59] LABS: URINE COLOR YELLOW
[2018-07-05 02:41] LABS: EPI CELLS RARE /HPF (FEW); URINE BACTERIA RARE /hpf (NONE SEEN); URINE HYALINE CAST 40 /lpf; URINE MUCUS RARE
[2018-07-05] MEDS: chlordiazePOXIDE HCL 25 MG CAPSULE PO SCH ×4 (06:05→22:15)
[2018-07-05] MEDS: GABAPENTIN 400 MG CAPSULE (FP) PO SCH ×3 (06:05→22:16)
[2018-07-05 10:19] LABS: HEMATOCRIT 40.3 % (32.4-45.2); MCH 30.7 pg (25.7-33.7); MCHC 34.8 g/dl (32.0-36.0); MEAN CELL VOLUME 88.3 fl (80-96); MEAN PLT VOLUME 10.3 fl (7.5-11.1); PLATELET COUNT 188 K/MM3 (134-434); RBC 4.57 M/mm3 (3.60-5.2); RDW 13.5 % (11.6-15.6); WHITE BLOOD COUNT 7.1 K/mm3 (4.0-10.0)
[2018-07-05] MEDS: BUDESONIDE/FORMETEROL FUMARATE 160/4.5 mcg INHALER IH SCH ×2 (10:40→22:15)
[2018-07-05] MEDS: NICOTINE 14 MG/24 HOURS TOPICAL PATCH TD SCH (10:47)
[2018-07-05] MEDS: METOPROLOL TARTRATE 25 MG TABLET (FP) PO SCH ×2 (10:48→22:15)
[2018-07-05] MEDS: LISINOPRIL 10 MG TABLET (FP) PO SCH (10:48)
[2018-07-05] MEDS: ASPIRIN 81 MG CHEWABLE TABLETS PO SCH (10:48)
[2018-07-05] MEDS: PRENATAL VITAMINS W/ FOLIC ACID TABLET (FP) PO SCH (10:48)
[2018-07-05 10:58] LABS: ALBUMIN 2.9 g/dl (3.4-5.0); ALK PHOS 67 U/L (45-117); ANION GAP 6 MMOL/L (8-16); BILIRUBIN,TOTAL 0.5 mg/dL (0.2-1); BLOOD UREA NITROGEN 12 mg/dL (7-18); CALCIUM 8.7 mg/dL (8.5-10.1); CHLORIDE 104 mmol/L (98-107); CO2 29 mmol/L (21-32); CREATININE 0.7 mg/dL (0.55-1.3); GLUCOSE,RANDOM 102 mg/dL (74-106); POTASSIUM 3.7 mmol/L (3.5-5.1); SGOT/AST 13 U/L (15-37); SGPT/ALT 15 U/L (13-61); SODIUM 139 mmol/L (136-145); TOT PROT 6.3 g/dl (6.4-8.2)
[2018-07-05] MEDS: METHADONE HCL 10 MG TABLET PO SCH (13:12)
--- NOTE | 2018-07-05 13:42 | CONSULT ---
[facility] Psychiatric Consult - Data Date of interview: 07/05/18 Admission source: [facility] Identifying data: This is a 48 years old female, , mother of three, homeless, on pension support, currently on MMTP program, with Alcohol Cocaine, Opioids and Nicotine dependence, reports withdrawal symptoms and seeking for detox. Substance Abuse History: Smoking history: Current every day smoker. Have you smoked in the past 12 months: Yes. Aproximately how many cigarettes per day: 5. Cigars Per Day: 0. Hx Chewing Tobacco Use: No. Initiated information on smoking cessation: Yes. 'Breaking Loose' booklet given: 07/04/18. - Substance & Tx. History. Hx Alcohol Use: Yes. Hx Substance Use: Yes. Substance Use Type : Alcohol, Cocaine. Hx Substance Use Treatment: Yes ([facility]). - Substances Abused. Alcohol. Route: Oral. Frequency: Daily. Amount used: LIQUPR- 3 PINTS, BEER- 3 (40oz). Age of first use: 10. Date of Last Use: 07/03/18. Cocaine. Route: Smoking. Frequency: Daily. Amount used: $200. Age of first use: 35. Date of Last Use: 07/03/18 Medical History: Asthma, Anemia history, CHF, HTN, Hyperlipidemia, Fibromyalgia , MMTP 30mg per day. Psychiatric History: Patient reports history of depression and anxiety, reports psychiatric admission on more tehn 10 yuears ago for safety, reports taking prior to admission Seroquel 50mgpo qhs for insomnia. As per chart patient has Bipolar Disorder, but patient reports not taking any medications for Bipolar Disorder. Denies suicidal, homicidal history. As per chart patient has a history of suicidal attempt, on 1990,1998, 2013, but patient refusing this information and states gen was never tryed to kill herself. Physical/Sexual Abuse/Trauma History: Unclear Additional Comment: Seroquel 50mgpo qhs Mental Status Exam - Mental Status Exam Alert and Oriented to: Place, Person Cognitive Function: Fair Patient Appearance: Unkempt Mood: Withdrawn Affect: Mood Congruent Patient Behavior: Cooperative Speech Pattern: Appropriate Voice Loudness: Mildly Soft/Quiet Thought Process: Goal Oriented Thought Disorder: Being Controlled Hallucinations: Denies Suicidal Ideation: Denies Homicidal Ideation: Denies Insight/Judgement: Fair Sleep: Difficulty falling asleep Appetite: Weight loss Muscle strength/Tone: Mild Hypotonicity Gait/Station: Shuffling Additional Comments: Seroquel 50mgpo qhs Psychiatric Findings - Problem List ([place] 1, 2,3) (1) Alcohol dependence with uncomplicated withdrawal Current Visit: Yes Status: Acute (2) Asthma Current Visit: Yes Status: Chronic Qualifiers: Asthma severity: mild Asthma persistence: intermittent Asthma complication type: with status asthmaticus Qualified Code(s): J45.22 - Mild intermittent asthma with status asthmaticus (3) Bipolar disorder Current Visit: Yes Status: Chronic (4) CHF (congestive heart failure) Current Visit: Yes Status: Chronic Qualifiers: Heart failure type: unspecified (5) Cocaine dependence, uncomplicated Current Visit: Yes Status: Chronic (6) Fibromyalgia Current Visit: Yes Status: Chronic (7) HTN (hypertension) Current Visit: Yes Status: Chronic Qualifiers: Hypertension type: essential hypertension Qualified Code(s): I10 - Essential (primary) hypertension (8) Hyperlipidemia Current Visit: Yes Status: Chronic Qualifiers: Hyperlipidemia type: pure hypercholesterolemia Qualified Code(s): E78.00 - Pure hypercholesterolemia, unspecified; E78.0 - Pure hypercholesterolemia (9) Methadone maintenance therapy patient Current Visit: Yes Status: Chronic (10) Anemia Current Visit: No Status: Chronic Qualifiers: Vitamin B12 deficiency anemia type: unspecified B12 deficiency (11) Cannabis dependence, uncomplicated Current Visit: No Status: Chronic (12) Sedative, hypnotic or anxiolytic dependence with withdrawal, uncomplicated Current Visit: No Status: Chronic - Initial Treatment Plan Initial Treatment Plan: Observation. Seroquel 50mgpo qhs
--- NOTE | 2018-07-05 16:39 | PN ---
S CIWA - CIWA Score Nausea/Vomitin Muscle Tremors: 4-Moderate,w/Arms Extend Anxiety: 0-No Anxiety, at Ease Agitation: 0-Normal Activity Paroxysmal Sweats: 3 Orientation: 0-Oriented Tacttile Disturbances: 1-Very Mild Itch/Numbness Auditory Disturbances: 2-Mild Harshness/Frighten Visual Disturbances: 0-None Headache: 2-Mild CIWA-Ar Total Score: 17 [facility] Progress Note (SOAP) Subjective: Diarrhea, Stomach Cramping, H/A, Vomiting, Body Aches, Sweating, Tremors. Objective: PATIENT A & O X 3, OBSERVED AMBULATING ON UNIT WITH ASSISTANCE OF A CANE. IN NO ACUTE DISTRESS. 07/05/18 16:37 Vital Signs Temperature 98.1 F 07/05/18 14:01 Pulse Rate 83 07/05/18 14:01 Respiratory Rate 16 07/05/18 14:01 Blood Pressure 110/78 07/05/18 14:01 O2 Sat by Pulse Oximetry (%) Laboratory Tests 07/04/18 07/05/18 07/05/18 22:30 07:00 07:00 WBC 7.1 RBC 4.57 Hgb 14.0 Hct 40.3 MCV 88.3 MCH 30.7 MCHC 34.8 RDW 13.5 Plt Count 188 D MPV 10.3 Sodium Potassium Chloride Carbon Dioxide Anion Gap BUN Creatinine Creat Clearance w eGFR Random Glucose Calcium Total Bilirubin AST ALT Alkaline Phosphatase Total Protein Albumin Urine Color Yellow Urine Appearance Slcloudy Urine pH 5.0 Ur Specific [place] 1.015 Urine Protein 1+ H Urine Glucose (UA) Negative Urine Ketones Negative Urine Blood Negative Urine Nitrite Positive Urine Bilirubin Negative Urine Urobilinogen 4.0 e.u/dl H Ur Leukocyte Esterase 1+ H Urine WBC (Auto) 34 Urine RBC (Auto) 4 Ur Epithelial Cells Rare Urine Bacteria Rare Hyaline Casts 40 Urine Mucus Rare HIV 1&2 Antibody Screen Negative HIV P24 Antigen Negative 07/05/18 07:00 WBC RBC Hgb Hct MCV MCH MCHC RDW Plt Count MPV Sodium 139 Potassium 3.7 Chloride 104 Carbon Dioxide 29 Anion Gap 6 L BUN 12 Creatinine 0.7 Creat Clearance w eGFR > 60 Random Glucose 102 Calcium 8.7 Total Bilirubin 0.5 AST 13 L ALT 15 Alkaline Phosphatase 67 Total Protein 6.3 L Albumin 2.9 L Urine Color Urine Appearance Urine pH Ur Specific [place] Urine Protein Urine Glucose (UA) Urine Ketones Urine Blood Urine Nitrite Urine Bilirubin Urine Urobilinogen Ur Leukocyte Esterase Urine WBC (Auto) Urine RBC (Auto) Ur Epithelial Cells Urine Bacteria Hyaline Casts Urine Mucus HIV 1&2 Antibody Screen HIV P24 Antigen LABS NOTED. RPR RESULT PENDING. 07/05/18 16:41 Assessment: 07/05/18 16:38 WITHDRAWAL SYMPTOMS. Plan: CONTINUE DETOX. REPEAT UA WITH URINE C + S ORDERED FOR ABNORMALITIES NOTED ON ADMISSION UA. NO UNUSUAL URINARY SYMPTOMS REPORTED BY PATIENT DURING AM ROUNDS ASSESSMENT TODAY. INCREASE DAILY PO FLUID INTAKE.
--- NOTE | 2018-07-05 16:40 | EKG ---
Test Reason : Blood Pressure : / mmHG Vent. Rate : 086 BPM Atrial Rate : 086 BPM P-R Int : 128 ms QRS Dur : 088 ms QT Int : 388 ms P-R-T Axes : 065 060 056 degrees QTc Int : 464 ms NORMAL SINUS RHYTHM NORMAL ECG WHEN COMPARED WITH ECG OF 13-DEC-2017 21:42, NO SIGNIFICANT CHANGE WAS FOUND Confirmed by POOJA HOWARD MD ([id number]) on 07/05/2018 4:40:07 PM Referred By: TAMIKA Confirmed By:POOJA HOWARD MD
[2018-07-05] MEDS: ATORVASTATIN CA 80 MG TABLET (FP) PO SCH (22:15)
[2018-07-05] MEDS: THIAMINE HCL 100 MG TABLET (FP) PO SCH (22:16)
[2018-07-05] MEDS: QUEtiapine FUMARATE 50 MG TABLET PO SCH (23:29)
--- NOTE | 2018-07-05 23:31 | PN ---
[facility] Progress Note Note: Psychiatric nurse pracitioner loss prevention representative note: Call received by RN requesting seroquel 50mg. Dr Ruiz's note read and appreciated. Will order Seroquel 50mg qhs.
[2018-07-06] MEDS: METHADONE HCL 10 MG TABLET PO SCH (05:34)
[2018-07-06] MEDS: GABAPENTIN 400 MG CAPSULE (FP) PO SCH ×3 (05:35→22:25)
[2018-07-06] MEDS: chlordiazePOXIDE HCL 25 MG CAPSULE PO SCH ×3 (05:35→17:31)
[2018-07-06] MEDS: BUDESONIDE/FORMETEROL FUMARATE 160/4.5 mcg INHALER IH SCH ×2 (10:16→22:25)
[2018-07-06] MEDS: ASPIRIN 81 MG CHEWABLE TABLETS PO SCH (10:16)
[2018-07-06] MEDS: METOPROLOL TARTRATE 25 MG TABLET (FP) PO SCH ×2 (10:16→22:25)
[2018-07-06] MEDS: NICOTINE 14 MG/24 HOURS TOPICAL PATCH TD SCH (10:16)
[2018-07-06] MEDS: PRENATAL VITAMINS W/ FOLIC ACID TABLET (FP) PO SCH (10:16)
[2018-07-06] MEDS: LISINOPRIL 10 MG TABLET (FP) PO SCH (10:16)
--- NOTE | 2018-07-06 12:24 | PN ---
[facility] CIWA - CIWA Score Nausea/Vomitin-No Nausea/No Vomiting Muscle Tremors: 3 Anxiety: 3 Agitation: 3 Paroxysmal Sweats: 3 Orientation: 0-Oriented Tacttile Disturbances: 0-None Auditory Disturbances: 0-None Visual Disturbances: 0-None Headache: 0-None Present CIWA-Ar Total Score: 12 S Progress Note (SOAP) Subjective: agitation sweats body aches interrupted sleep anxiety Objective: 07/06/18 12:22 Vital Signs Temperature 97.9 F 07/06/18 09:59 Pulse Rate 84 07/06/18 09:59 Respiratory Rate 18 07/06/18 09:59 Blood Pressure 101/70 07/06/18 09:59 O2 Sat by Pulse Oximetry (%) Laboratory Tests 07/04/18 07/05/18 07/05/18 22:30 07:00 07:00 WBC 7.1 RBC 4.57 Hgb 14.0 Hct 40.3 MCV 88.3 MCH 30.7 MCHC 34.8 RDW 13.5 Plt Count 188 D MPV 10.3 Sodium Potassium Chloride Carbon Dioxide Anion Gap BUN Creatinine Creat Clearance w eGFR Random Glucose Calcium Total Bilirubin AST ALT Alkaline Phosphatase Total Protein Albumin Urine Color Yellow Urine Appearance Slcloudy Urine pH 5.0 Ur Specific [place] 1.015 Urine Protein 1+ H Urine Glucose (UA) Negative Urine Ketones Negative Urine Blood Negative Urine Nitrite Positive Urine Bilirubin Negative Urine Urobilinogen 4.0 e.u/dl H Ur Leukocyte Esterase 1+ H Urine WBC (Auto) 34 Urine RBC (Auto) 4 Ur Epithelial Cells Rare Urine Bacteria Rare Hyaline Casts 40 Urine Mucus Rare HIV 1&2 Antibody Screen Negative HIV P24 Antigen Negative 07/05/18 07:00 WBC RBC Hgb Hct MCV MCH MCHC RDW Plt Count MPV Sodium 139 Potassium 3.7 Chloride 104 Carbon Dioxide 29 Anion Gap 6 L BUN 12 Creatinine 0.7 Creat Clearance w eGFR > 60 Random Glucose 102 Calcium 8.7 Total Bilirubin 0.5 AST 13 L ALT 15 Alkaline Phosphatase 67 Total Protein 6.3 L Albumin 2.9 L Urine Color Urine Appearance Urine pH Ur Specific [place] Urine Protein Urine Glucose (UA) Urine Ketones Urine Blood Urine Nitrite Urine Bilirubin Urine Urobilinogen Ur Leukocyte Esterase Urine WBC (Auto) Urine RBC (Auto) Ur Epithelial Cells Urine Bacteria Hyaline Casts Urine Mucus HIV 1&2 Antibody Screen HIV P24 Antigen aaox3 ambulating no acute discharge Assessment: 07/06/18 12:23 withdrawal sx Plan: continue detox increase fluids
[2018-07-06] MEDS: QUEtiapine FUMARATE 50 MG TABLET PO SCH (22:25)
[2018-07-06] MEDS: chlordiazePOXIDE 5 MG CAPSULE PO SCH (22:25)
[2018-07-06] MEDS: THIAMINE HCL 100 MG TABLET (FP) PO SCH (22:25)
[2018-07-06] MEDS: ATORVASTATIN CA 80 MG TABLET (FP) PO SCH (22:25)
[2018-07-07] MEDS: chlordiazePOXIDE 5 MG CAPSULE PO SCH ×3 (06:18→17:51)
[2018-07-07] MEDS: GABAPENTIN 400 MG CAPSULE (FP) PO SCH ×3 (06:18→22:06)
[2018-07-07] MEDS: METHADONE HCL 10 MG TABLET PO SCH (06:18)
[2018-07-07] MEDS: ALBUTEROL SO4 8 GM HFA INHALER IH PRN (09:26)
[2018-07-07] MEDS: ASPIRIN 81 MG CHEWABLE TABLETS PO SCH (10:36)
[2018-07-07] MEDS: PRENATAL VITAMINS W/ FOLIC ACID TABLET (FP) PO SCH (10:36)
[2018-07-07] MEDS: BUDESONIDE/FORMETEROL FUMARATE 160/4.5 mcg INHALER IH SCH ×2 (10:37→22:05)
[2018-07-07] MEDS: METOPROLOL TARTRATE 25 MG TABLET (FP) PO SCH ×2 (10:37→22:06)
[2018-07-07] MEDS: LISINOPRIL 10 MG TABLET (FP) PO SCH (10:37)
[2018-07-07] MEDS: NICOTINE 14 MG/24 HOURS TOPICAL PATCH TD SCH (10:37)
--- NOTE | 2018-07-07 13:13 | PN ---
[facility] Progress Note (SOAP) Subjective: Tremors, sweats,N/V/D and leg pain Objective: 07/07/18 13:11 Vital Signs 07/07/18 07/07/18 08:28 09:50 Temperature 98.4 F 96.3 F L Pulse Rate 88 90 Respiratory 18 16 Rate Blood Pressure 102/67 109/70 Laboratory Last Values WBC 7.1 K/mm3 (4.0-10.0) 07/05/18 07:00 RBC 4.57 M/mm3 (3.60-5.2) 07/05/18 07:00 Hgb 14.0 GM/dL (10.7-15.3) 07/05/18 07:00 Hct 40.3 % (32.4-45.2) 07/05/18 07:00 MCV 88.3 fl (80-96) 07/05/18 07:00 MCH 30.7 pg (25.7-33.7) 07/05/18 07:00 MCHC 34.8 g/dl (32.0-36.0) 07/05/18 07:00 RDW 13.5 % (11.6-15.6) 07/05/18 07:00 Plt Count 188 K/MM3 (134-434) D 07/05/18 07:00 MPV 10.3 fl (7.5-11.1) 07/05/18 07:00 Sodium 139 mmol/L (136-145) 07/05/18 07:00 Potassium 3.7 mmol/L (3.5-5.1) 07/05/18 07:00 Chloride 104 mmol/L (98-107) 07/05/18 07:00 Carbon Dioxide 29 mmol/L (21-32) 07/05/18 07:00 Anion Gap 6 MMOL/L (8-16) L 07/05/18 07:00 BUN 12 mg/dL (7-18) 07/05/18 07:00 Creatinine 0.7 mg/dL (0.55-1.3) 07/05/18 07:00 Creat Clearance w eGFR > 60 (>60) 07/05/18 07:00 Random Glucose 102 mg/dL (74-106) 07/05/18 07:00 Calcium 8.7 mg/dL (8.5-10.1) 07/05/18 07:00 Total Bilirubin 0.5 mg/dL (0.2-1) 07/05/18 07:00 AST 13 U/L (15-37) L 07/05/18 07:00 ALT 15 U/L (13-61) 07/05/18 07:00 Alkaline Phosphatase 67 U/L (45-117) 07/05/18 07:00 Total Protein 6.3 g/dl (6.4-8.2) L 07/05/18 07:00 Albumin 2.9 g/dl (3.4-5.0) L 07/05/18 07:00 Urine Color Yellow 07/04/18 22:30 Urine Appearance Slcloudy 07/04/18 22:30 Urine pH 5.0 (5.0-8.0) 07/04/18 22:30 Ur Specific [place] 1.015 (1.010-1.035) 07/04/18 22:30 Urine Protein 1+ (NEGATIVE) H 07/04/18 22:30 Urine Glucose (UA) Negative (NEGATIVE) 07/04/18 22:30 Urine Ketones Negative (NEGATIVE) 07/04/18 22:30 Urine Blood Negative (NEGATIVE) 07/04/18 22:30 Urine Nitrite Positive (NEGATIVE) 07/04/18 22:30 Urine Bilirubin Negative (<2.0 mg/dL) 07/04/18 22:30 Urine Urobilinogen 4.0 e.u/dl mg/dL (0.2-1.0) H 07/04/18 22:30 Ur Leukocyte Esterase 1+ (NEGATIVE) H 07/04/18 22:30 Urine WBC (Auto) 34 /hpf (3-5) 07/04/18 22:30 Urine RBC (Auto) 4 /hpf (0-3) 07/04/18 22:30 Ur Epithelial Cells Rare /HPF (FEW) 07/04/18 22:30 Urine Bacteria Rare /hpf (NONE SEEN) 07/04/18 22:30 Hyaline Casts 40 /lpf 07/04/18 22:30 Urine Mucus Rare 07/04/18 22:30 RPR Titer Nonreactive (NONREACTIVE) 07/05/18 07:00 HIV 1&2 Antibody Screen Negative 07/05/18 07:00 HIV P24 Antigen Negative 07/05/18 07:00 Labs noted, no panic values, possible urine contamination Assessment: 07/07/18 13:13 Withdrawal sx Plan: Continue detox
--- NOTE | 2018-07-07 15:38 | PN ---
[facility] Progress Note (SOAP) Subjective: Urinary frequency and urgency, foul and dark colored urine, pain on urination Objective: 07/07/18 15:34 07/05/18 Unknown Urine Culture - Preliminary Urine - Urine Clean Catch Non Lactose Fermenting Gnb Last Vital Signs Temp Pulse Resp BP Pulse Ox 97.7 F 93 H 16 106/69 07/07/18 13:25 07/07/18 13:25 07/07/18 13:25 07/07/18 13:25 Suprapubic tenderness, CVA tenderness, occasional chills but no fever, frequency with very little urine. Has h/o UTI Assessment: 07/07/18 15:34 Possible Ecoli UTI Plan: Bactrim DS PO BID x 7 days
[2018-07-07] MEDS: QUEtiapine FUMARATE 50 MG TABLET PO SCH (22:06)
[2018-07-07] MEDS: ATORVASTATIN CA 80 MG TABLET (FP) PO SCH (22:06)
[2018-07-07] MEDS: chlordiazePOXIDE HCL 10 MG CAPSULE PO SCH (22:06)
[2018-07-07] MEDS: SULFAMETHOXAZOLE/TRIMETHOPRIM 800MG/160MG D.S. TABLET PO SCH (22:06)
[2018-07-07] MEDS: THIAMINE HCL 100 MG TABLET (FP) PO SCH (22:06)
[2018-07-08] MEDS: chlordiazePOXIDE HCL 10 MG CAPSULE PO SCH ×2 (06:13→10:19)
[2018-07-08] MEDS: GABAPENTIN 400 MG CAPSULE (FP) PO SCH ×2 (06:13→15:01)
[2018-07-08] MEDS: METHADONE HCL 10 MG TABLET PO SCH (06:15)
[2018-07-08] MEDS: LISINOPRIL 10 MG TABLET (FP) PO SCH (10:18)
[2018-07-08] MEDS: PRENATAL VITAMINS W/ FOLIC ACID TABLET (FP) PO SCH (10:19)
[2018-07-08] MEDS: NICOTINE 14 MG/24 HOURS TOPICAL PATCH TD SCH (10:19)
[2018-07-08] MEDS: SULFAMETHOXAZOLE/TRIMETHOPRIM 800MG/160MG D.S. TABLET PO SCH (10:19)
[2018-07-08] MEDS: BUDESONIDE/FORMETEROL FUMARATE 160/4.5 mcg INHALER IH SCH (10:19)
[2018-07-08] MEDS: ASPIRIN 81 MG CHEWABLE TABLETS PO SCH (10:19)
[2018-07-08] MEDS: METOPROLOL TARTRATE 25 MG TABLET (FP) PO SCH (10:19)
--- NOTE | 2018-07-08 11:15 | DS ---
[facility] Detox Discharge Summary Admission Date: 07/04/18 Discharge Date: 07/08/18 - History Present History: Alcohol Dependence Additional Comments: 48 years old female admitted on 07/04/18 for alcohol withdrawal stabilization completed detox regimen tolerated well aftercare [facility] [place] - Physical Exam Results Vital Signs: Vital Signs Temperature 97.9 F 07/08/18 09:23 Pulse Rate 88 07/08/18 09:23 Respiratory Rate 18 07/08/18 09:23 Blood Pressure 101/68 07/08/18 09:23 O2 Sat by Pulse Oximetry (%) Pertinent Admission Physical Exam Findings: alcohol withdrawal sx Laboratory Last Values WBC 7.1 K/mm3 (4.0-10.0) 07/05/18 07:00 RBC 4.57 M/mm3 (3.60-5.2) 07/05/18 07:00 Hgb 14.0 GM/dL (10.7-15.3) 07/05/18 07:00 Hct 40.3 % (32.4-45.2) 07/05/18 07:00 MCV 88.3 fl (80-96) 07/05/18 07:00 MCH 30.7 pg (25.7-33.7) 07/05/18 07:00 MCHC 34.8 g/dl (32.0-36.0) 07/05/18 07:00 RDW 13.5 % (11.6-15.6) 07/05/18 07:00 Plt Count 188 K/MM3 (134-434) D 07/05/18 07:00 MPV 10.3 fl (7.5-11.1) 07/05/18 07:00 Sodium 139 mmol/L (136-145) 07/05/18 07:00 Potassium 3.7 mmol/L (3.5-5.1) 07/05/18 07:00 Chloride 104 mmol/L (98-107) 07/05/18 07:00 Carbon Dioxide 29 mmol/L (21-32) 07/05/18 07:00 Anion Gap 6 MMOL/L (8-16) L 07/05/18 07:00 BUN 12 mg/dL (7-18) 07/05/18 07:00 Creatinine 0.7 mg/dL (0.55-1.3) 07/05/18 07:00 Creat Clearance w eGFR > 60 (>60) 07/05/18 07:00 Random Glucose 102 mg/dL (74-106) 07/05/18 07:00 Calcium 8.7 mg/dL (8.5-10.1) 07/05/18 07:00 Total Bilirubin 0.5 mg/dL (0.2-1) 07/05/18 07:00 AST 13 U/L (15-37) L 07/05/18 07:00 ALT 15 U/L (13-61) 07/05/18 07:00 Alkaline Phosphatase 67 U/L (45-117) 07/05/18 07:00 Total Protein 6.3 g/dl (6.4-8.2) L 07/05/18 07:00 Albumin 2.9 g/dl (3.4-5.0) L 07/05/18 07:00 Urine Color Yellow 07/04/18 22:30 Urine Appearance Slcloudy 07/04/18 22:30 Urine pH 5.0 (5.0-8.0) 07/04/18 22:30 Ur Specific [place] 1.015 (1.010-1.035) 07/04/18 22:30 Urine Protein 1+ (NEGATIVE) H 07/04/18 22:30 Urine Glucose (UA) Negative (NEGATIVE) 07/04/18 22:30 Urine Ketones Negative (NEGATIVE) 07/04/18 22:30 Urine Blood Negative (NEGATIVE) 07/04/18 22:30 Urine Nitrite Positive (NEGATIVE) 07/04/18 22:30 Urine Bilirubin Negative (<2.0 mg/dL) 07/04/18 22:30 Urine Urobilinogen 4.0 e.u/dl mg/dL (0.2-1.0) H 07/04/18 22:30 Ur Leukocyte Esterase 1+ (NEGATIVE) H 07/04/18 22:30 Urine WBC (Auto) 34 /hpf (3-5) 07/04/18 22:30 Urine RBC (Auto) 4 /hpf (0-3) 07/04/18 22:30 Ur Epithelial Cells Rare /HPF (FEW) 07/04/18 22:30 Urine Bacteria Rare /hpf (NONE SEEN) 07/04/18 22:30 Hyaline Casts 40 /lpf 07/04/18 22:30 Urine Mucus Rare 07/04/18 22:30 RPR Titer Nonreactive (NONREACTIVE) 07/05/18 07:00 HIV 1&2 Antibody Screen Negative 07/05/18 07:00 HIV P24 Antigen Negative 07/05/18 07:00 lab noted - Treatment Hospital Course: Detox Protocol Followed, Detoxed Safely, Responded well, Discharged Condition Good, Rehab Referral Accepted Patient has Accepted a Rehab Referral to: [facility] [place] - Medication Discharge Medications: Ambulatory Orders Aspirin 81 mg PO DAILY 12/13/17 Methadone [Dolophine -] 30 mg PO DAILY 12/14/17 hydrOXYzine PAMOATE [Vistaril -] 50 mg PO QID #90 capsule 12/14/17 Carvedilol [Coreg -] 3.125 mg PO BID #60 tablet 12/17/17 Gabapentin [Neurontin -] 400 mg PO TID 07/04/18 Quetiapine Fumarate [Seroquel -] 300 mg PO HS 07/04/18 Albuterol Sulfate Inhaler - [Ventolin HFA Inhaler -] 2 inh PO Q4H PRN #1 inhaler 07/08/18 Atorvastatin Ca [Lipitor] 80 mg PO HS #14 tablet 07/08/18 Budesonide/Formeterol Fumarate [SYMBICORT 160/4.5mcg -] 2 inh PO BID #1 inhaler 07/08/18 Lisinopril [Prinivil] 10 mg PO DAILY #14 tablet 07/08/18 Metoprolol Tartrate [Lopressor -] 25 mg PO BID #30 tablet 07/08/18 Sulfamethoxazole/Trimethoprim [Bactrim DS -] 1 each PO BID #7 tablet 07/08/18 - Diagnosis (1) Alcohol dependence with uncomplicated withdrawal Current Visit: Yes Status: Acute (2) Nicotine dependence Current Visit: Yes Status: Acute Qualifiers: Nicotine product type: cigarettes Substance use status: in withdrawal Qualified Code(s): F17.213 - Nicotine dependence, cigarettes, with withdrawal (3) Asthma Current Visit: Yes Status: Chronic Qualifiers: Asthma severity: mild Asthma persistence: intermittent Asthma complication type: with status asthmaticus Qualified Code(s): J45.22 - Mild intermittent asthma with status asthmaticus (4) HTN (hypertension) Current Visit: Yes Status: Chronic Qualifiers: Hypertension type: essential hypertension Qualified Code(s): I10 - Essential (primary) hypertension (5) Methadone maintenance therapy patient Current Visit: Yes Status: Chronic - AMA Did Patient Leave Against Medical Advice: No
[2018-07-08 14:18] VITALS: BP 93/65; PULSE 85; TEMP 97.2
== END 2018-07-08 15:16 | disposition home or self-care (01) | DRG 773 ==
LOC: YASAS 17:44 → Y6N 21:26
PROVIDERS: ADMIT Neuromusculoskeletal Medicine & OMM; ATTEND Neuromusculoskeletal Medicine & OMM
PROC: HZ2ZZZZ Detoxification Services for Substance Abuse Treatment (ICD-10-PCS; principal; 2018-07-04)
DX: F10.230 Alcohol dependence with withdrawal, uncomplicated (principal); F11.20 Opioid dependence, uncomplicated; F14.20 Cocaine dependence, uncomplicated; F17.213 Nicotine dependence, cigarettes, with withdrawal; F31.9 Bipolar disorder, unspecified; I11.0 Hypertensive heart disease with heart failure; J45.22 Mild intermittent asthma with status asthmaticus; N39.0 Urinary tract infection, site not specified; B96.20 Unspecified Escherichia coli [E. coli] as the cause of diseases classified elsewhere; I50.22 Chronic systolic (congestive) heart failure; E78.5 Hyperlipidemia, unspecified; M79.7 Fibromyalgia; D51.9 Vitamin B12 deficiency anemia, unspecified; Z87.42 Personal history of other diseases of the female genital tract; Z91.5 Personal history of self-harm
CPT/HCPCS: 36415; 80053; 81003; 81015; 85027; 86593; 87086; 87186; 87389; 93005; 93010

== ENCOUNTER 2018-08-10 15:56 | Inpatient (IN) | payer OTHER ==
[2018-08-10 16:45] VITALS: BMI 22.4
--- NOTE | 2018-08-10 17:34 | HP ---
CIWA Score Nausea/Vomitin Muscle Tremors: 1-None Visible, but Dexter Anxiety: 4-Mod. Anxious/Guarded Agitation: 4-Moderately Restless Paroxysmal Sweats: No Perspiration Orientation: 2-Disoriented Date<2 days Tacttile Disturbances: 2-Mild Itch/Numbness/Burn Auditory Disturbances: 0-None Visual Disturbances: 0-None Headache: 0-None Present CIWA-Ar Total Score: 18 - Admission Criteria OASAS Guidelines: Admission for Medically Managed Detox: Requires at least one of the followin. CIWA greater than 12 2. Seizures within the past 24 hours 3. Delirium tremens within the past 24 hours 4. Hallucinations within the past 24 hours 5. Acute intervention needed for co occurring medical disorder 6. Acute intervention needed for co occurring psychiatric disorder 7. Severe withdrawal that cannot be handled at a lower level of care (continued vomiting, continued diarrhea, abnormal vital signs) requiring intravenous medication and/or fluids 8. Admission ROS [facility] Chief Complaint: PATIENT PRESENTS WITH ETOH WITHDRAWAL SX AND PCP/MARIJUANA DEPENDENCE. Allergies/Adverse Reactions: Allergies Allergy/AdvReac Type Severity Reaction Status Date / Time Penicillins Allergy Rash Verified 07/04/18 20:38 History of Present Illness: PATIENT IS KNOWN TO [facility] DUE TO MULTIPLE ADMISSIONS. PATIENT PRESENTS FOR DETOX FOR ETOH WITHDRAWAL SX AND PCP/MARIJUANA DEPENDENCE. PATIENT WAS INITIALLY INTOXICATED FROM PCP AND WAS SHOUTING IN WAITING AREA. PATIENT EVALUATED AND PLACED IN PRIVATE ROOM. AFTER 15 MINUTES, PATIENT BECAME CALM AND IS ORIENTED X 3. PATIENT REPORTS LONG HISTORY OF POLYSUBSTANCE USE. PATIENT STATES SHE STARTED DRINKING AND SMOKING AT AGE 10. DRINKS 7 MALT LIQUORS DAILY, LAST DRINK THIS AFTERNOON, SMOKES 1-2 JOINTS DAILY SINCE AGE 10. LAST TIME SHE USED WAS TODAY. PMH INCLUDE BIPOLAR DISORDER, CHF, ASTHMA AND HTN. PATIENT DENIES SI/HI. NO SUICIDE ATTEMPTS REPORTED. Exam Limitations: Altered Mental Status (PATIENT WAS INITIALLY YELLING UPON ARRIVAL TO [facility] DUE TO INTOXICATION WITH PCP) - Ebola screening Have you traveled outside of the country in the last 21 days: No Have you had contact with anyone from an Ebola affected area: No Have you been sick,other than usual withdrawal symptoms: No Do you have a fever: No - Review of Systems Constitutional: Chills, Night Sweats, Changes in sleep EENT: reports: Nose Congestion Respiratory: reports: Cough (DRY COUGH) Cardiac: reports: No Symptoms Reported GI: reports: Nausea, Poor Fluid Intake, Vomiting : reports: Frequency Musculoskeletal: reports: Back Pain, Joint Pain, Muscle Pain Integumentary: reports: No Symptoms Reported Neuro: reports: Numbness, Tingling, Tremors Endocrine: reports: No Symptoms Reported Hematology: reports: No Symptoms Reported Psychiatric: reports: Anxious, Depressed, other (DISORIENTED TO DATE, STATES DATE IS 08/06/18) Patient History - Patient Medical History Hx Anemia: No Hx Asthma: Yes (Pt is on MDI for asthma.) Hx Chronic Obstructive Pulmonary Disease (COPD): No Hx Cancer: No Hx Cardiac Disorders: Yes (CHF) Hx Congestive Heart Failure: Yes (Metoprolol) Hx Hypertension: Yes Hx Hypercholesterolemia: Yes Hx Pacemaker: No HX Cerebrovascular Accident: No Hx Seizures: Yes (in 2013) Hx Diabetes: No Hx Gastrointestinal Disorders: No Hx Liver Disease: No Hx Genitourinary Disorders: No Hx Sexually Transmitted Disorders: No Hx Renal Disease (ESRD): No Hx Thyroid Disease: No Hx Human Immunodeficiency Virus (HIV): No (Negative 2016) Hx Hepatitis C: No Hx Depression: Yes Hx Suicide Attempt: Yes Hx Bipolar Disorder: Yes (Seroquel) Hx Schizophrenia: No - Patient Surgical History Past Surgical History: Yes Hx Neurologic Surgery: No Hx Cataract Extraction: No Hx Cardiac Surgery: No Hx Lung Surgery: No Hx Breast Surgery: No Hx Breast Biopsy: No Hx Abdominal Surgery: No Hx Appendectomy: No Hx Cholecystectomy: Yes (2002) Hx Genitourinary Surgery: No Hx Section: Yes (1983, 1987 and 1990) Hx Orthopedic Surgery: No Other Surgical History: TUBAL LIGATION- 1990 Anesthesia Reaction: No - PPD History Previous Implant?: Yes Documented Results: Negative w/proof Implanted On Prior R Admission?: Yes Date: 12/15/17 Results: 0 mm - Reproductive History Last Menstrual Period: 11/30/17 Patient : No - Smoking Cessation Smoking history: Current every day smoker Have you smoked in the past 12 months: Yes Aproximately how many cigarettes per day: 5 Cigars Per Day: 0 Hx Chewing Tobacco Use: No Initiated information on smoking cessation: Yes 'Breaking Loose' booklet given: 08/10/18 - Substances Abused Alcohol Route: Oral Frequency: Daily Amount used: 7 malt liquor Age of first use: 10 Date of Last Use: 08/10/18 PCP Route: Smoking Frequency: Daily Amount used: 1 joint Age of first use: 10 Date of Last Use: 08/10/18 Marijuana/Hashish Route: Smoking Frequency: Daily Amount used: 1 joint Age of first use: 10 Date of Last Use: 08/10/18 Family Disease History - Family Disease History Family Disease History: Diabetes: Mother, Heart Disease: Father (ASTHMA, COPD), Mother, Respiratory: Father Admission Physical Exam [facility] - Vital Signs Vital Signs: Vital Signs - 24 hr 08/10/18 16:42 Temperature 96.8 F L Pulse Rate 106 H Respiratory 18 Rate Blood Pressure 137/81 - Physical General Appearance: Yes: Nourished, Appropriately Dressed, Disheveled, Tremorous , Anxious HEENTM: Yes: EOMI, Hearing grossly Normal, Normocephalic, Normal Voice, TJ ( [place] PUPILS), Pharynx Normal, Nasal Congestion Respiratory: Yes: Chest Non-Tender, Lungs Clear, Normal Breath Sounds, No Respiratory Distress, No Accessory Muscle Use Neck: Yes: No masses,lesions,Nodules, Supple, Trachea in good position Breast: Yes: Breast Exam Deferred Cardiology: Yes: Regular Rhythm, Regular Rate, S1, S2 Abdominal: Yes: Normal Bowel Sounds, Non Tender, Soft Genitourinary: Yes: Frequency Back: Yes: Within Normal Limits Musculoskeletal: Yes: full range of Motion, Gait Steady Extremities: Yes: Normal Range of Motion, Tremors, Swelling, Erythema Neurological: Yes: coil winder repair II-XII NML intact, Fully Oriented, Alert, Motor Strength 5/5, Normal Response, Depressed Affect Integumentary: Yes: Dry, Warm, Erythema, Other (BLE EDEMA + 1) Lymphatic: Yes: Within Normal Limits - Diagnostic (1) Alcohol dependence with uncomplicated withdrawal Current Visit: No Status: Acute (2) Nicotine dependence Current Visit: Yes Status: Chronic Qualifiers: Nicotine product type: cigarettes Substance use status: in withdrawal Qualified Code(s): F17.213 - Nicotine dependence, cigarettes, with withdrawal (3) Asthma Current Visit: No Status: Chronic Qualifiers: Asthma severity: mild Asthma persistence: intermittent Asthma complication type: with status asthmaticus Qualified Code(s): J45.22 - Mild intermittent asthma with status asthmaticus (4) Bipolar disorder Current Visit: Yes Status: Chronic Qualifiers: Current bipolar episode type: mixed Current episode severity: unspecified (5) CHF (congestive heart failure) Current Visit: Yes Status: Chronic Qualifiers: Heart failure type: systolic Heart failure chronicity: unspecified Qualified Code(s): I50.20 - Unspecified systolic (congestive) heart failure (6) Cannabis dependence, uncomplicated Current Visit: Yes Status: Chronic (7) HTN (hypertension) Current Visit: Yes Status: Chronic Qualifiers: Hypertension type: essential hypertension Qualified Code(s): I10 - Essential (primary) hypertension (8) Hyperlipidemia Current Visit: No Status: Chronic Qualifiers: Hyperlipidemia type: pure hypercholesterolemia Qualified Code(s): E78.00 - Pure hypercholesterolemia, unspecified; E78.0 - Pure hypercholesterolemia (9) Methadone maintenance therapy patient Current Visit: Yes Status: Chronic (10) Cellulitis Current Visit: Yes Status: Acute Qualifiers: Site of cellulitis: extremity Site of cellulitis of extremity: lower extremity Laterality: unspecified laterality Qualified Code(s): L03.119 - Cellulitis of unspecified part of limb Cleared for Admission [facility] - Detox or Rehab [facility] Level of Care: Medically Managed Detox Regimen/Protocol: Librium [facility] Breath Alcohol Content Breath Alcohol Content: 0 Urine Pregancy Test - Result Urine Test Results: Negative- NO Line Present Urine Drug Screen - Results Drug Screen Negative: No Urine Drug Screen Results: THC-Marijuana, PCP-Phencyclidine, MTD-Methadone Inpatient Rehab Admission - Rehab Decision to Admit Inpatient rehab admission?: No
[2018-08-10] MEDS ORDERED: P-EPHED 60MG/TRIPROLIDI 2.5MG TABLET PO PRN (17:43)
[2018-08-10] MEDS ORDERED: IBUPROFEN 400 MG TABLET (FP) PO PRN (17:43)
[2018-08-10] MEDS ORDERED: guaiFENesin/D-METHORPHAN HB 10 ML UNIT-DOSE CUPS PO PRN (17:43)
[2018-08-10] MEDS ORDERED: MAGNESIUM CITRATE 300 ML BOTTLE PO PRN (17:43)
[2018-08-10] MEDS ORDERED: hydrOXYzine PAMOATE 50 MG CAPSULE (FP) PO PRN (17:43)
[2018-08-10] MEDS ORDERED: MAGNESIUM HYDROX 2400MG/30ML ORAL SUSPENSION 30 ML CUP PO PRN (17:43)
[2018-08-10] MEDS ORDERED: ACETAMINOPHEN 325 MG TABLET (FP) PO PRN (17:43)
[2018-08-10] MEDS ORDERED: MENTHOL/PHENOL 1 EACH UD MM PRN (17:43)
[2018-08-10] MEDS ORDERED: LOPERAMIDE HCL 2 MG CAPSULE PO PRN (17:43)
[2018-08-10] MEDS ORDERED: ALBUTEROL SO4 8 GM HFA INHALER IH PRN (17:45)
[2018-08-10] MEDS ORDERED: chlordiazePOXIDE HCL 25 MG CAPSULE PO PRN (17:47)
[2018-08-10] MEDS: CLINDAMYCIN HCL 150 MG CAPSULE (FP) PO SCH (19:19)
[2018-08-10] MEDS ORDERED: MELATONIN 5 MG TABLETS PO PRN (22:00)
[2018-08-10] MEDS: BUDESONIDE/FORMETEROL FUMARATE 160/4.5 mcg INHALER IH SCH (22:02)
[2018-08-10] MEDS: GABAPENTIN 400 MG CAPSULE (FP) PO SCH (22:05)
[2018-08-10] MEDS: chlordiazePOXIDE HCL 25 MG CAPSULE PO SCH (22:05)
[2018-08-10] MEDS: ATORVASTATIN CA 80 MG TABLET (FP) PO SCH (22:05)
[2018-08-10] MEDS: CARVEDILOL 3.125 MG TABLET (FP) PO SCH (22:05)
[2018-08-10] MEDS: METOPROLOL TARTRATE 25 MG TABLET (FP) PO SCH (22:05)
[2018-08-10] MEDS: THIAMINE HCL 100 MG TABLET (FP) PO SCH (22:05)
[2018-08-11] MEDS: CLINDAMYCIN HCL 150 MG CAPSULE (FP) PO SCH ×4 (00:33→20:27)
[2018-08-11] MEDS: GABAPENTIN 400 MG CAPSULE (FP) PO SCH ×3 (05:52→22:32)
[2018-08-11] MEDS: chlordiazePOXIDE HCL 25 MG CAPSULE PO SCH ×4 (05:52→22:32)
[2018-08-11] MEDS ORDERED: METHADONE HCL 10 MG TABLET PO ONE (09:16)
[2018-08-11] MEDS ORDERED: NICOTINE 21 MG/24 HOURS TOPICAL PATCH TD SCH (10:00)
[2018-08-11 10:26] LABS: HEMATOCRIT 37.7 % (32.4-45.2); HEMOGLOBIN 12.8 GM/dL (10.7-15.3); MCH 30.8 pg (25.7-33.7); MCHC 33.9 g/dl (32.0-36.0); MEAN CELL VOLUME 90.7 fl (80-96); MEAN PLT VOLUME 9.6 fl (7.5-11.1); PLATELET COUNT 166 K/MM3 (134-434); RBC 4.16 M/mm3 (3.60-5.2); RDW 15.3 % (11.6-15.6); WHITE BLOOD COUNT 3.5 K/mm3 (4.0-10.0)
[2018-08-11 10:29] LABS: ALBUMIN 3.2 g/dl (3.4-5.0); ALK PHOS 103 U/L (45-117); ANION GAP 4 MMOL/L (8-16); BILIRUBIN,TOTAL 0.8 mg/dL (0.2-1); BLOOD UREA NITROGEN 11 mg/dL (7-18); CALCIUM 8.4 mg/dL (8.5-10.1); CHLORIDE 108 mmol/L (98-107); CO2 25 mmol/L (21-32); CREATININE 0.7 mg/dL (0.55-1.3); GLUCOSE,RANDOM 94 mg/dL (74-106); POTASSIUM 4.3 mmol/L (3.5-5.1); SGOT/AST 317 U/L (15-37); SGPT/ALT 140 U/L (13-61); SODIUM 137 mmol/L (136-145); TOT PROT 6.3 g/dl (6.4-8.2)
[2018-08-11] MEDS: METOPROLOL TARTRATE 25 MG TABLET (FP) PO SCH ×2 (10:39→22:32)
[2018-08-11] MEDS: PRENATAL VITAMINS W/ FOLIC ACID TABLET (FP) PO SCH (10:39)
[2018-08-11] MEDS: LISINOPRIL 10 MG TABLET (FP) PO SCH (10:39)
[2018-08-11] MEDS: ASPIRIN 81 MG CHEWABLE TABLETS PO SCH (10:39)
[2018-08-11] MEDS: CARVEDILOL 3.125 MG TABLET (FP) PO SCH ×2 (10:40→22:32)
[2018-08-11] MEDS: BUDESONIDE/FORMETEROL FUMARATE 160/4.5 mcg INHALER IH SCH ×3 (10:40→22:36)
[2018-08-11] MEDS: MAG HYDROX/AL HYDROX/SIMETH 30 ML UNIT-DOSE CUP PO PRN (10:43)
[2018-08-11] MEDS ORDERED: ONDANSETRON *ODT* 4 MG TABLET SL PRN (10:58)
[2018-08-11] MEDS: ALBUTEROL SO4 2.5/IPRATROPIUM 0.5 INH SOL 3 ML VIAL.NEB. NEB SCH ×2 (11:14→22:34)
[2018-08-11] MEDS ORDERED: METHADONE HCL 10 MG TABLET (FOR DETOX USE ONLY) PO ONE (12:00)
--- NOTE | 2018-08-11 12:03 | PN ---
[facility] CIWA - CIWA Score Nausea/Vomitin Muscle Tremors: 3 Anxiety: 5 Agitation: 3 Paroxysmal Sweats: 1-Minimal Palms Moist Orientation: 0-Oriented Tacttile Disturbances: 0-None Auditory Disturbances: 0-None Visual Disturbances: 0-None Headache: 0-None Present CIWA-Ar Total Score: 17 S Progress Note (SOAP) Subjective: PT C/O NAUSEA/VOMITING(VOMITED HER MEDS WITHIN 5 - 15 MINS AFTER ADMINISTRATION. LIGHT ORANGE COLOR EMESIS IN GARBAGE CAN),MUSCLE ACHES, CONSTIPATION X 2 WEEKS, STOMACH CRAMPS,CHEST DISCOMFORT, LEFT UPPER X 2 DAYS, PALPITATIONS, ANXIETY, PANIC ATTACKS. DENIES SOB, DIZZINESS, OR FEVER. REPORTS WHEEZING-HX ASTHMA. REPORTS HX CHF WITH 3 STENTS INSERTED(2016 OR 2018, PT NOT SURE. DID NOT SAY ON ADMISSION). Objective: 08/11/18 12:03 Vital Signs 08/11/18 08/11/18 08/11/18 06:00 10:22 11:41 Temperature 97.7 F 97.7 F Pulse Rate 69 63 78 Respiratory 18 18 Rate Blood Pressure 116/77 121/59 L O2 Sat by Pulse 100 Oximetry (%) Laboratory Tests 08/11/18 08/11/18 08/11/18 07:40 07:40 07:40 WBC 3.5 L RBC 4.16 Hgb 12.8 Hct 37.7 MCV 90.7 MCH 30.8 MCHC 33.9 RDW 15.3 D Plt Count 166 MPV 9.6 Sodium 137 Potassium 4.3 Chloride 108 H Carbon Dioxide 25 Anion Gap 4 L BUN 11 Creatinine 0.7 Creat Clearance w eGFR > 60 Random Glucose 94 Calcium 8.4 L Total Bilirubin 0.8 AST 317 H ALT 140 H Alkaline Phosphatase 103 Total Protein 6.3 L Albumin 3.2 L RPR Titer Nonreactive LABS NOTED. PULSE OX 100% ROOM AIR CARDIAC:S1 S2 RRR, NO MURMUR LUNGS:BILATERAL EXPIRATORY WHEEZING, NO GROSS RHONCHI NOTED. EKG OF TODAY WAS NORMAL SINUS RHYTHM, NORMAL ECG. VENT RATE 64 BPM COMPARATIVELY: EKG OF 07/05/18 WAS NSR, NORMAL ECG AND NO SIGNIFICANT CHANGE FROM EKG DONE . Assessment: 08/11/18 12:04 WITHDRAWAL SX Plan: CONTINUE DETOX DUONED NEB INHALER DIRECTED ZOFRAN 8 MG SL Q8H FOR N/V; TIGAN 200 MG IM IF NOT EFFECTIVE. PULSE OX X 1 WAS DONE EKG NOW WS DONE RE-DOSE WITH METHADONE 10 MG PO X 1 DOSE. COLACE 100 MG PO TID MOM GIVEN WITH SOME RESULT TODAY; CITROMA IF NEEDED IN THE MORMING. MONITOR PT'S SYMPTOMS. MAY TRANSFER TO ER IF SX NOT GETTING BETTER.
[2018-08-11] MEDS: DOCUSATE SODIUM 100 MG CAPSULE (FP) PO SCH ×2 (13:25→22:32)
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
--- NOTE | 2018-08-11 22:17 | EKG ---
Test Reason : Blood Pressure : / mmHG Vent. Rate : 064 BPM Atrial Rate : 064 BPM P-R Int : 132 ms QRS Dur : 098 ms QT Int : 414 ms P-R-T Axes : 048 048 051 degrees QTc Int : 427 ms NORMAL SINUS RHYTHM NORMAL ECG WHEN COMPARED WITH ECG OF 05-JUL-2018 14:31, NO SIGNIFICANT CHANGE WAS FOUND Confirmed by WALKER DAVENPORT MD ([id number]) on 08/11/2018 10:17:13 PM Referred By: PEGGY Gimenez Confirmed By:WALKER DAVENPORT MD
[2018-08-11] MEDS: ATORVASTATIN CA 80 MG TABLET (FP) PO SCH (22:32)
[2018-08-11] MEDS: THIAMINE HCL 100 MG TABLET (FP) PO SCH (22:35)
[2018-08-12] MEDS: CLINDAMYCIN HCL 150 MG CAPSULE (FP) PO SCH ×5 (00:54→23:13)
[2018-08-12] MEDS: METHADONE HCL 10 MG TABLET PO SCH (05:51)
[2018-08-12] MEDS: chlordiazePOXIDE HCL 25 MG CAPSULE PO SCH ×3 (05:51→17:38)
[2018-08-12] MEDS: DOCUSATE SODIUM 100 MG CAPSULE (FP) PO SCH ×3 (05:51→22:17)
[2018-08-12] MEDS: GABAPENTIN 400 MG CAPSULE (FP) PO SCH ×3 (05:54→22:17)
[2018-08-12] MEDS: ASPIRIN 81 MG CHEWABLE TABLETS PO SCH (10:32)
[2018-08-12] MEDS: PRENATAL VITAMINS W/ FOLIC ACID TABLET (FP) PO SCH (10:32)
[2018-08-12] MEDS: CARVEDILOL 3.125 MG TABLET (FP) PO SCH ×2 (10:33→22:17)
[2018-08-12] MEDS: ALBUTEROL SO4 2.5/IPRATROPIUM 0.5 INH SOL 3 ML VIAL.NEB. NEB SCH ×5 (10:33→23:24)
[2018-08-12] MEDS: NICOTINE 21 MG/24 HOURS TOPICAL PATCH TD SCH (10:34)
[2018-08-12] MEDS: METOPROLOL TARTRATE 25 MG TABLET (FP) PO SCH ×2 (10:34→23:15)
[2018-08-12] MEDS: BUDESONIDE/FORMETEROL FUMARATE 160/4.5 mcg INHALER IH SCH ×2 (10:34→22:21)
[2018-08-12] MEDS: LISINOPRIL 10 MG TABLET (FP) PO SCH (10:34)
[2018-08-12] MEDS: NICOTINE POLACRILEX 2 MG GUM BC PRN (10:35)
--- NOTE | 2018-08-12 11:22 | PN ---
[facility] Progress Note Note: Patient was seen today briefly for a follow-up. She complainsof insomnia, shifting mood and irritation She denies psychosis,depression suicidal or homicidal ideation She takes Seoquel 50 mg po q hs Plan: Seoquel 50 mg po q hs Monitor response
--- NOTE | 2018-08-12 18:18 | PN ---
[facility] CIWA - CIWA Score Nausea/Vomitin-Mild Nausea/No Vomiting Muscle Tremors: 3 Anxiety: 3 Agitation: 3 Paroxysmal Sweats: 3 Orientation: 0-Oriented Tacttile Disturbances: 0-None Auditory Disturbances: 0-None Visual Disturbances: 0-None Headache: 0-None Present CIWA-Ar Total Score: 13 [facility] Progress Note (SOAP) Subjective: Tremor, anxious, interrupted sleep, vomited once, nausea Objective: 08/12/18 18:16 Last Vital Signs Temp Pulse Resp BP Pulse Ox 97.5 F L 74 18 110/61 100 08/12/18 17:48 08/12/18 17:48 08/12/18 17:48 08/12/18 17:48 08/11/18 11:41 Laboratory Tests 08/11/18 08/11/18 08/11/18 07:40 07:40 07:40 WBC 3.5 L RBC 4.16 Hgb 12.8 Hct 37.7 MCV 90.7 MCH 30.8 MCHC 33.9 RDW 15.3 D Plt Count 166 MPV 9.6 Sodium 137 Potassium 4.3 Chloride 108 H Carbon Dioxide 25 Anion Gap 4 L BUN 11 Creatinine 0.7 Creat Clearance w eGFR > 60 Random Glucose 94 Calcium 8.4 L Total Bilirubin 0.8 AST 317 H ALT 140 H Alkaline Phosphatase 103 Total Protein 6.3 L Albumin 3.2 L RPR Titer Nonreactive Labs reviewed: AST 317, ALT 140 Assessment: 08/12/18 18:17 Withdrawal symptoms Noted with elevated LFTs Plan: Continue detox Encouraged PO water hydration Elevated LFTS: repeat AST/ALT
[2018-08-12] MEDS: chlordiazePOXIDE 5 MG CAPSULE PO SCH (22:16)
[2018-08-12] MEDS: ATORVASTATIN CA 80 MG TABLET (FP) PO SCH (22:17)
[2018-08-12] MEDS: QUEtiapine FUMARATE 50 MG TABLET PO SCH (22:17)
[2018-08-12] MEDS: THIAMINE HCL 100 MG TABLET (FP) PO SCH (22:21)
[2018-08-13] MEDS: METHADONE HCL 10 MG TABLET PO SCH (05:55)
[2018-08-13] MEDS: DOCUSATE SODIUM 100 MG CAPSULE (FP) PO SCH ×3 (05:55→22:02)
[2018-08-13] MEDS: CLINDAMYCIN HCL 150 MG CAPSULE (FP) PO SCH ×4 (05:55→23:04)
[2018-08-13] MEDS: chlordiazePOXIDE 5 MG CAPSULE PO SCH ×3 (05:55→17:16)
[2018-08-13] MEDS: GABAPENTIN 400 MG CAPSULE (FP) PO SCH ×3 (05:55→22:03)
--- NOTE | 2018-08-13 08:46 | PN ---
[facility] Progress Note (SOAP) Subjective: feeling better little anxiety Objective: 08/13/18 08:45 Vital Signs Temperature 98.1 F 08/13/18 06:53 Pulse Rate 76 08/13/18 06:53 Respiratory Rate 16 08/13/18 06:53 Blood Pressure 113/62 08/13/18 06:53 O2 Sat by Pulse Oximetry (%) 100 08/11/18 11:41 aaox3 ambulating no acute distress Assessment: 08/13/18 08:45 withdrawal sx Plan: continue detox increase fluids d/c in am
[2018-08-13 10:19] LABS: URINE APPEARANCE CLEAR; URINE BILIRUBIN NEGATIVE (<2.0 mg/dL); URINE COLOR YELLOW; URINE GLUCOSE (UA) NEGATIVE (NEGATIVE); URINE KETONE NEGATIVE (NEGATIVE); URINE LEUK ESTERASE NEGATIVE (NEGATIVE); URINE NITRITE NEGATIVE (NEGATIVE); URINE PROTEIN NEGATIVE (NEGATIVE); URINE UROBILINOGEN 4.0 E.U/dl mg/dL (0.2-1.0)
[2018-08-13 10:52] LABS: SGOT/AST 111 U/L (15-37); SGPT/ALT 174 U/L (13-61)
[2018-08-13] MEDS: CARVEDILOL 3.125 MG TABLET (FP) PO SCH ×2 (10:58→22:03)
[2018-08-13] MEDS: METOPROLOL TARTRATE 25 MG TABLET (FP) PO SCH ×2 (10:58→22:03)
[2018-08-13] MEDS: LISINOPRIL 10 MG TABLET (FP) PO SCH (10:58)
[2018-08-13] MEDS: ASPIRIN 81 MG CHEWABLE TABLETS PO SCH (10:58)
[2018-08-13] MEDS: PRENATAL VITAMINS W/ FOLIC ACID TABLET (FP) PO SCH (10:58)
[2018-08-13] MEDS: BUDESONIDE/FORMETEROL FUMARATE 160/4.5 mcg INHALER IH SCH ×2 (10:59→22:04)
[2018-08-13] MEDS: NICOTINE 21 MG/24 HOURS TOPICAL PATCH TD SCH (11:01)
[2018-08-13] MEDS: ALBUTEROL SO4 2.5/IPRATROPIUM 0.5 INH SOL 3 ML VIAL.NEB. NEB SCH ×2 (11:01→17:14)
[2018-08-13] MEDS: NICOTINE POLACRILEX 2 MG GUM BC PRN (11:01)
[2018-08-13] MEDS: MAG HYDROX/AL HYDROX/SIMETH 30 ML UNIT-DOSE CUP PO PRN (12:14)
[2018-08-13] MEDS: ATORVASTATIN CA 80 MG TABLET (FP) PO SCH (22:03)
[2018-08-13] MEDS: chlordiazePOXIDE HCL 10 MG CAPSULE PO SCH (22:03)
[2018-08-13] MEDS: QUEtiapine FUMARATE 50 MG TABLET PO SCH (22:03)
[2018-08-13] MEDS: THIAMINE HCL 100 MG TABLET (FP) PO SCH (22:04)
[2018-08-14] MEDS: METHADONE HCL 10 MG TABLET PO SCH (06:06)
[2018-08-14] MEDS: CLINDAMYCIN HCL 150 MG CAPSULE (FP) PO SCH (06:07)
[2018-08-14] MEDS: GABAPENTIN 400 MG CAPSULE (FP) PO SCH (06:07)
[2018-08-14] MEDS: chlordiazePOXIDE HCL 10 MG CAPSULE PO SCH (06:07)
[2018-08-14] MEDS: DOCUSATE SODIUM 100 MG CAPSULE (FP) PO SCH (06:35)
[2018-08-14] MEDS: ALBUTEROL SO4 2.5/IPRATROPIUM 0.5 INH SOL 3 ML VIAL.NEB. NEB SCH (06:37)
[2018-08-14 07:35] VITALS: BP 101/63; PULSE 64; TEMP 98.1
--- NOTE | 2018-08-14 08:55 | DS ---
[facility] Detox Discharge Summary Admission Date: 08/10/18 Discharge Date: 08/14/18 - History Present History: Alcohol Dependence, Cannabis Dependence, Cocaine Dependence, Sedative Dependence, MMTP - Physical Exam Results Vital Signs: Vital Signs Temperature 98.1 F 08/14/18 07:34 Pulse Rate 64 08/14/18 07:34 Respiratory Rate 16 08/14/18 07:34 Blood Pressure 101/63 08/14/18 07:34 O2 Sat by Pulse Oximetry (%) 100 08/11/18 11:41 - Treatment Hospital Course: Detox Protocol Followed, Detoxed Safely, Responded well, Discharged Condition Good, Rehab Referral Accepted - Medication Discharge Medications: Ambulatory Orders Aspirin 81 mg PO DAILY 12/13/17 Methadone [Dolophine -] 30 mg PO DAILY 12/14/17 hydrOXYzine PAMOATE [Vistaril -] 50 mg PO QID #90 capsule 12/14/17 Carvedilol [Coreg -] 3.125 mg PO BID #60 tablet 12/17/17 Gabapentin [Neurontin -] 400 mg PO TID 07/04/18 Quetiapine Fumarate [Seroquel -] 300 mg PO HS 07/04/18 Albuterol Sulfate Inhaler - [Ventolin HFA Inhaler -] 2 inh PO Q4H PRN #1 inhaler 07/08/18 Atorvastatin Ca [Lipitor] 80 mg PO HS #14 tablet 07/08/18 Budesonide/Formeterol Fumarate [SYMBICORT 160/4.5mcg -] 2 inh PO BID #1 inhaler 07/08/18 Lisinopril [Prinivil] 10 mg PO DAILY #14 tablet 07/08/18 Metoprolol Tartrate [Lopressor -] 25 mg PO BID #30 tablet 07/08/18 - Diagnosis (1) Alcohol dependence with uncomplicated withdrawal Current Visit: Yes Status: Chronic (2) Cellulitis Current Visit: Yes Status: Acute Qualifiers: Site of cellulitis: extremity Site of cellulitis of extremity: lower extremity Laterality: unspecified laterality Qualified Code(s): L03.119 - Cellulitis of unspecified part of limb (3) Non-compliance with treatment Current Visit: Yes Status: Acute (4) Bipolar disorder Current Visit: Yes Status: Chronic Qualifiers: Current bipolar episode type: mixed Current episode severity: unspecified (5) CHF (congestive heart failure) Current Visit: Yes Status: Chronic Qualifiers: Heart failure type: systolic Heart failure chronicity: unspecified Qualified Code(s): I50.20 - Unspecified systolic (congestive) heart failure (6) Cannabis dependence, uncomplicated Current Visit: Yes Status: Chronic (7) Cocaine dependence, uncomplicated Current Visit: Yes Status: Chronic (8) HTN (hypertension) Current Visit: Yes Status: Chronic Qualifiers: Hypertension type: essential hypertension Qualified Code(s): I10 - Essential (primary) hypertension (9) History of bipolar disorder Current Visit: Yes Status: Chronic (10) Insomnia Current Visit: Yes Status: Chronic (11) Methadone maintenance therapy patient Current Visit: Yes Status: Chronic (12) Nicotine dependence Current Visit: Yes Status: Chronic Qualifiers: Nicotine product type: cigarettes Substance use status: uncomplicated Qualified Code(s): F17.210 - Nicotine dependence, cigarettes, uncomplicated (13) Substance induced mood disorder Current Visit: Yes Status: Chronic (14) Post traumatic stress disorder (PTSD) Current Visit: Yes Status: Suspected (15) Seizure activity as manifestation of blood transfusion reaction Current Visit: No Status: Acute (16) Anemia Current Visit: Yes Status: Chronic Qualifiers: Vitamin B12 deficiency anemia type: unspecified B12 deficiency (17) Anxiety Current Visit: No Status: Chronic (18) Asthma Current Visit: No Status: Chronic Qualifiers: Asthma severity: mild Asthma persistence: intermittent Asthma complication type: with status asthmaticus Qualified Code(s): J45.22 - Mild intermittent asthma with status asthmaticus (19) Depression Current Visit: No Status: Chronic Qualifiers: Depression Type: major depressive disorder Major depression recurrence: recurrent Active/Remission status: in partial remission Qualified Code(s): F33.41 - Major depressive disorder, recurrent, in partial remission (20) Fibromyalgia Current Visit: No Status: Chronic (21) Hyperlipidemia Current Visit: No Status: Chronic Qualifiers: Hyperlipidemia type: pure hypercholesterolemia Qualified Code(s): E78.00 - Pure hypercholesterolemia, unspecified; E78.0 - Pure hypercholesterolemia (22) Sedative, hypnotic or anxiolytic dependence with withdrawal, uncomplicated Current Visit: Yes Status: Chronic - AMA Did Patient Leave Against Medical Advice: No (referred to [facility] out patient rehab)
[2018-08-14] MEDS: METOPROLOL TARTRATE 25 MG TABLET (FP) PO SCH (09:18)
[2018-08-14] MEDS: BUDESONIDE/FORMETEROL FUMARATE 160/4.5 mcg INHALER IH SCH (09:18)
[2018-08-14] MEDS: CARVEDILOL 3.125 MG TABLET (FP) PO SCH (09:18)
[2018-08-14] MEDS: LISINOPRIL 10 MG TABLET (FP) PO SCH (09:18)
[2018-08-14] MEDS: PRENATAL VITAMINS W/ FOLIC ACID TABLET (FP) PO SCH (09:18)
[2018-08-14] MEDS: ASPIRIN 81 MG CHEWABLE TABLETS PO SCH (09:18)
[2018-08-14] MEDS: NICOTINE 21 MG/24 HOURS TOPICAL PATCH TD SCH (09:18)
== END 2018-08-14 09:18 | disposition home or self-care (01) | DRG 773 ==
LOC: YASAS 15:56 → Y3N 18:08 → Y6N 21:25
PROVIDERS: ADMIT Surgery; ATTEND Surgery
PROC: HZ2ZZZZ Detoxification Services for Substance Abuse Treatment (ICD-10-PCS; principal; 2018-08-10)
DX: F10.230 Alcohol dependence with withdrawal, uncomplicated (principal); F13.230 Sedative, hypnotic or anxiolytic dependence with withdrawal, uncomplicated; F14.20 Cocaine dependence, uncomplicated; F12.20 Cannabis dependence, uncomplicated; F11.20 Opioid dependence, uncomplicated; F17.210 Nicotine dependence, cigarettes, uncomplicated; F33.41 Major depressive disorder, recurrent, in partial remission; F19.24 Other psychoactive substance dependence with psychoactive substance-induced mood disorder; F31.9 Bipolar disorder, unspecified; F43.10 Post-traumatic stress disorder, unspecified; F41.9 Anxiety disorder, unspecified; G47.00 Insomnia, unspecified; I11.0 Hypertensive heart disease with heart failure; I50.9 Heart failure, unspecified; J45.22 Mild intermittent asthma with status asthmaticus; M79.7 Fibromyalgia; E53.9 Vitamin B deficiency, unspecified; R74.8 Abnormal levels of other serum enzymes; Z86.69 Personal history of other diseases of the nervous system and sense organs; Z88.0 Allergy status to penicillin; Z91.19 Patient's noncompliance with other medical treatment and regimen
CPT/HCPCS: 36415; 80053; 81003; 84450; 84460; 85027; 86593; 93005; 93010; 94640; Q0162

== ENCOUNTER 2018-09-03 15:00 | Inpatient (IN) | payer OTHER ==
[2018-09-03 17:24] VITALS: BMI 22.4
--- NOTE | 2018-09-03 18:02 | HP ---
COWS - Scale Resting Pulse: 1= [place] 81-100 Sweatin= Chills/Flushing Restless Observation: 1= Difficult to Sit Still Pupil Size: 1= Pupils >than Normal Bone or Joint Aches: 1= Mild Discomfort Runny Nose/ Eye Tearin= Runny Nose/Eyes GI Upset > 30mins: 3= Vomiting/Diarrhea Tremor Observation: 1= Tremor [place], Not Seen Yawning Observation: 1= 1-2x During Session Anxiety or Irritability: 2=Irritable/Anxious Goose Flesh Skin: 0=Smooth Skin COWS Score: 14 CIWA Score Nausea/Vomitin-Int. Nausea w/Dry Heave Muscle Tremors: 2 Anxiety: 4-Mod. Anxious/Guarded Agitation: 2 Paroxysmal Sweats: 2 Orientation: 2-Disoriented Date<2 days Tacttile Disturbances: 0-None Auditory Disturbances: 0-None Visual Disturbances: 0-None Headache: 2-Mild CIWA-Ar Total Score: 18 - Admission Criteria OAS Guidelines: Admission for Medically Managed Detox: Requires at least one of the followin. CIWA greater than 12 2. Seizures within the past 24 hours 3. Delirium tremens within the past 24 hours 4. Hallucinations within the past 24 hours 5. Acute intervention needed for co occurring medical disorder 6. Acute intervention needed for co occurring psychiatric disorder 7. Severe withdrawal that cannot be handled at a lower level of care (continued vomiting, continued diarrhea, abnormal vital signs) requiring intravenous medication and/or fluids 8. Patient presents the following: CIWA greater than 12, Acute intervention needed for co-occurring med or psych disorder Admission Criteria Met: Admission criteria met Admission ROS [facility] Chief Complaint: " alcohol and heroin detox" Allergies/Adverse Reactions: Allergies Allergy/AdvReac Type Severity Reaction Status Date / Time Penicillins Allergy Rash Verified 09/03/18 18:11 History of Present Illness: 48 yo female, homeless, with hx of alcohol, marijuana, intravenous heroin, PCP, K2 and nicotine dependence is here seeking alcohol and heroin detox d/t withdrawal symptoms. Patients last detox [facility] 08/10/18 -08/14/18 reports relapsed soon after. Reports stopped attending methadone program in about a month at [facility]. PMHX: CHF, Hep C, Asthma, Fibromyalgia. Psych : depression, anxiety and bipolar. Denies suicidal / homicidal ideation. Reports hx of suicide attempt 1990 with [facility]. Longest period of sobriety 12 years, reports "struggling with sobriety since of child" Denies hx of seizure, reports hx of overdose x 1 about one year ago. LAst EKG 08/11/18 NSR. Others' Prescriptions Patient Name: Wilver Tompkins Date: 1970 Address: [facility] [address] Sex: Female Rx Written Rx Dispensed Drug Quantity Days Supply Prescriber Name 08/23/2018 08/23/2018 clonazepam 0.5 mg tablet 30 30 Moran, Wilma Npp 07/19/2018 07/19/2018 clonazepam 0.5 mg tablet 30 30 Moran, Wilma Npp 06/21/2018 06/21/2018 clonazepam 0.5 mg tablet 30 15 Moran, Wilma Npp 05/24/2018 05/24/2018 clonazepam 0.5 mg tablet 30 15 Moran, Wilma Npp 04/24/2018 04/24/2018 clonazepam 0.5 mg tablet 30 15 Moran, Wilma Npp 03/27/2018 03/27/2018 clonazepam 0.5 mg tablet 30 15 Moran, Wilma Npp Exam Limitations: No Limitations - Ebola screening Have you traveled outside of the country in the last 21 days: No Have you had contact with anyone from an Ebola affected area: No Have you been sick,other than usual withdrawal symptoms: No - Review of Systems Constitutional: Chills, Diaphoresis, Loss of Appetite, Weakness, Unintentional Wgt. Loss EENT: reports: No Symptoms Reported Respiratory: reports: No Symptoms reported Cardiac: reports: See HPI GI: reports: Diarrhea, Nausea, Poor Appetite, Poor Fluid Intake, Vomiting, Abdominal cramping : reports: No Symptoms Reported Musculoskeletal: reports: No Symptoms Reported, Back Pain, Joint Pain Integumentary: reports: No Symptoms Reported Neuro: reports: Headache Endocrine: reports: Increased Thirst Hematology: reports: No Symptoms Reported Psychiatric: reports: Orientated x3, Anxious, Depressed Other Systems: Reviewed and Negative Patient History - Patient Medical History Hx Anemia: No Hx Asthma: Yes (Pt is on MDI for asthma.) Hx Chronic Obstructive Pulmonary Disease (COPD): No Hx Cancer: No Hx Cardiac Disorders: Yes (CHF) Hx Congestive Heart Failure: Yes (Metoprolol) Hx Hypertension: Yes Hx Hypercholesterolemia: Yes Hx Pacemaker: No HX Cerebrovascular Accident: No Hx Seizures: Yes (in 2013) Hx Diabetes: No Hx Gastrointestinal Disorders: No Hx Liver Disease: No Hx Genitourinary Disorders: No Hx Sexually Transmitted Disorders: No Hx Renal Disease (ESRD): No Hx Thyroid Disease: No Hx Human Immunodeficiency Virus (HIV): No (Negative 2016) Hx Hepatitis C: No Hx Depression: Yes Hx Suicide Attempt: Yes Hx Bipolar Disorder: Yes (Seroquel) Hx Schizophrenia: No - Patient Surgical History Past Surgical History: Yes Hx Neurologic Surgery: No Hx Cataract Extraction: No Hx Cardiac Surgery: No Hx Lung Surgery: No Hx Breast Surgery: No Hx Breast Biopsy: No Hx Abdominal Surgery: No Hx Appendectomy: No Hx Cholecystectomy: Yes (2002) Hx Genitourinary Surgery: No Hx Section: Yes (1983, 1987 and 1990) Hx Orthopedic Surgery: No Other Surgical History: TUBAL LIGATION- 1990 Anesthesia Reaction: No - PPD History Previous Implant?: No Documented Results: Negative w/proof Date: 12/15/17 Results: 0 mm PPD to be Administered?: Yes - Reproductive History Patient is a Female of Child Bearing Age (11 -55 yrs old): Yes (Post menopausal ) Last Menstrual Period: 11/30/17 - Smoking Cessation Smoking history: Current every day smoker Have you smoked in the past 12 months: Yes Aproximately how many cigarettes per day: 5 Cigars Per Day: 0 Hx Chewing Tobacco Use: No Initiated information on smoking cessation: Yes 'Breaking Loose' booklet given: 09/03/18 - Substance & Tx. History Hx Alcohol Use: Yes Hx Substance Use: Yes Substance Use Type: Alcohol, Cocaine, Heroin Hx Substance Use Treatment: Yes (Detox [facility] 08/10/18 - 08/14/18) - Substances Abused heroin Route: Injection Frequency: Daily Amount used: 2 bags Age of first use: 28 Date of Last Use: 09/03/18 Alcohol Route: Oral Frequency: Daily Amount used: 1 pint + 2 x 24 oz beer Age of first use: 19 Date of Last Use: 09/02/18 Family Disease History - Family Disease History Family Disease History: Diabetes: Mother, Heart Disease: Father (ASTHMA, COPD), Mother, Respiratory: Father Admission Physical Exam [facility] - Vital Signs Vital Signs: Vital Signs - 24 hr 09/03/18 17:21 Temperature 98 F Pulse Rate 85 Respiratory 18 Rate Blood Pressure 121/69 - Physical General Appearance: Yes: Disheveled, Thin, Anxious HEENTM: Yes: Hearing grossly Normal, Normal ENT Inspection, Normocephalic, Normal Voice, Pharynx Normal, Tm's normal, Rhinorrhea, Other (poor dentition) Respiratory: Yes: Chest Non-Tender, Lungs Clear, Normal Breath Sounds, No Respiratory Distress, No Accessory Muscle Use Neck: Yes: Within Normal Limits Breast: Yes: Breast Exam Deferred Cardiology: Yes: Regular Rhythm, Regular Rate Abdominal: Yes: Normal Bowel Sounds, Non Tender, Flat, Soft Genitourinary: Yes: Within Normal Limits Back: Yes: Normal Inspection Musculoskeletal: Yes: full range of Motion, Gait Steady, Pelvis Stable, Back pain Extremities: Yes: Normal Capillary Refill, Normal Inspection, Normal Range of Motion Neurological: Yes: cop winder II-XII NML intact, Fully Oriented, Alert, Motor Strength 5/5, Normal Mood/Affect (anxious, tearful) Integumentary: Yes: Normal Color, Warm, Diaphoresis, Track [place] (right anticubital fossa, no infection) Lymphatic: Yes: Within Normal Limits - Addiitonal Findings: Patient advised to follow up with primary care provider after completing detox re: CHF and hx elevated liver enzymes, patient verbalizes understanding. - Diagnostic (1) Opioid dependence with withdrawal Current Visit: Yes Status: Acute (2) Non-compliance with treatment Current Visit: Yes Status: Acute Comment: Poorly adherent to psychiatric OPD care. (3) Alcohol dependence with uncomplicated withdrawal Current Visit: Yes Status: Chronic (4) Anemia Current Visit: Yes Status: Chronic Qualifiers: Vitamin B12 deficiency anemia type: unspecified B12 deficiency (5) Asthma Current Visit: Yes Status: Chronic Qualifiers: Asthma severity: mild Asthma persistence: intermittent Asthma complication type: with status asthmaticus Qualified Code(s): J45.22 - Mild intermittent asthma with status asthmaticus (6) CHF (congestive heart failure) Current Visit: Yes Status: Chronic Qualifiers: Heart failure type: systolic Heart failure chronicity: unspecified Qualified Code(s): I50.20 - Unspecified systolic (congestive) heart failure (7) Fibromyalgia Current Visit: No Status: Chronic (8) HTN (hypertension) Current Visit: Yes Status: Chronic Qualifiers: Hypertension type: essential hypertension Qualified Code(s): I10 - Essential (primary) hypertension (9) Nicotine dependence Current Visit: Yes Status: Chronic Qualifiers: Nicotine product type: cigarettes Substance use status: uncomplicated Qualified Code(s): F17.210 - Nicotine dependence, cigarettes, uncomplicated Cleared for Admission [facility] - Detox or Rehab [facility] Level of Care: Medically Supervised (ALCOHOL DETOX: ATIVAN DETOX PROTOCOL HX ELEVATED LIVER ENZYMES) Detox Regimen/Protocol: Methadone [facility] Breath Alcohol Content Breath Alcohol Content: 0.016 Urine Pregancy Test - Result Urine Test Results: Negative - NO Line Present Urine Drug Screen - Results Drug Screen Negative: No Urine Drug Screen Results: THC-Marijuana, OPI-Opiates, BZO-Benzodiazepines Inpatient Rehab Admission - Rehab Decision to Admit Inpatient rehab admission?: No
[2018-09-03] MEDS ORDERED: MAGNESIUM CITRATE 300 ML BOTTLE PO PRN (18:08)
[2018-09-03] MEDS ORDERED: ACETAMINOPHEN 325 MG TABLET (FP) PO PRN ×2 (18:08)
[2018-09-03] MEDS ORDERED: METHOCARBAMOL 500 MG TABLET PO PRN (18:08)
[2018-09-03] MEDS ORDERED: MENTHOL/PHENOL 1 EACH UD MM PRN (18:08)
[2018-09-03] MEDS ORDERED: cloNIDine HCL 0.1 MG TABLET PO PRN (18:08)
[2018-09-03] MEDS ORDERED: MAG HYDROX/AL HYDROX/SIMETH 30 ML UNIT-DOSE CUP PO PRN (18:08)
[2018-09-03] MEDS ORDERED: BISMUTH SUBSALICYLATE 524 MG/30 ML UD PO PRN (18:08)
[2018-09-03] MEDS ORDERED: NICOTINE POLACRILEX 2 MG GUM BUC PRN (18:08)
[2018-09-03] MEDS ORDERED: IBUPROFEN 400 MG TABLET (FP) PO PRN (18:08)
[2018-09-03] MEDS ORDERED: MAGNESIUM HYDROX 2400MG/30ML ORAL SUSPENSION 30 ML CUP PO PRN (18:08)
[2018-09-03] MEDS: LORazepam 1 MG TABLET PO PRN (19:42)
[2018-09-03] MEDS: LORazepam 2 MG TABLET PO SCH (22:25)
[2018-09-03] MEDS: THIAMINE HCL 100 MG TABLET (FP) PO SCH (22:25)
[2018-09-03] MEDS: MELATONIN 5 MG TABLETS PO PRN (22:27)
[2018-09-03] MEDS ORDERED: METHADONE HCL 10 MG TABLET (FOR DETOX USE ONLY) PO ONE (23:00)
[2018-09-04 00:06] LABS: URINE APPEARANCE CLEAR; URINE BILIRUBIN NEGATIVE (<2.0 mg/dL); URINE COLOR YELLOW; URINE GLUCOSE (UA) NEGATIVE (NEGATIVE); URINE KETONE NEGATIVE (NEGATIVE); URINE LEUK ESTERASE NEGATIVE (NEGATIVE); URINE NITRITE NEGATIVE (NEGATIVE); URINE PROTEIN NEGATIVE (NEGATIVE)
[2018-09-04] MEDS: LORazepam 2 MG TABLET PO SCH ×3 (05:25→17:44)
[2018-09-04] MEDS ORDERED: METHADONE HCL 5 MG TABLET (FOR DETOX USE ONLY) PO ONE (10:00)
[2018-09-04] MEDS: PRENATAL VITAMINS W/ FOLIC ACID TABLET (FP) PO SCH (10:01)
[2018-09-04 11:24] LABS: HEMATOCRIT 41.3 % (32.4-45.2); MCH 31.1 pg (25.7-33.7); MCHC 33.9 g/dl (32.0-36.0); MEAN CELL VOLUME 91.6 fl (80-96); MEAN PLT VOLUME 9.8 fl (7.5-11.1); PLATELET COUNT 207 K/MM3 (134-434); RDW 15.5 % (11.6-15.6); WHITE BLOOD COUNT 5.1 K/mm3 (4.0-10.0)
[2018-09-04 11:36] LABS: BLOOD UREA NITROGEN 13 mg/dL (7-18); CHLORIDE 108 mmol/L (98-107); CO2 26 mmol/L (21-32); CREATININE 0.7 mg/dL (0.55-1.3); GLUCOSE,RANDOM 95 mg/dL (74-106); POTASSIUM 4.2 mmol/L (3.5-5.1); SODIUM 138 mmol/L (136-145)
[2018-09-04 11:37] LABS: ALBUMIN 3.4 g/dl (3.4-5.0); ALK PHOS 61 U/L (45-117); ANION GAP 4 MMOL/L (8-16); BILIRUBIN,TOTAL 0.5 mg/dL (0.2-1); CALCIUM 8.7 mg/dL (8.5-10.1); SGOT/AST 11 U/L (15-37); SGPT/ALT 15 U/L (13-61); TOT PROT 6.5 g/dl (6.4-8.2)
--- NOTE | 2018-09-04 11:43 | PN ---
[facility] CIWA - CIWA Score Nausea/Vomitin-Mild Nausea/No Vomiting Muscle Tremors: 4-Moderate,w/Arms Extend Anxiety: 3 Agitation: 3 Paroxysmal Sweats: 1-Minimal Palms Moist Orientation: 2-Disoriented Date<2 days Tacttile Disturbances: 0-None Auditory Disturbances: 0-None Visual Disturbances: 0-None Headache: 0-None Present CIWA-Ar Total Score: 14 S COWS - Scale Resting Pulse: 0= [place] 80 or Below Sweatin= Chills/Flushing Restless Observation: 0= Sits Still Pupil Size: 0= Normal to Room Light Bone or Joint Aches: 2= Severe Diffuse Aches Runny Nose/ Eye Tearin= Nasal Congestion GI Upset > 30mins: 2= Nausea/Diarrhea Tremor Observation of Outstretched Hands: 2= Slight Tremor Visible Yawning Observation: 1= 1-2x During Session Anxiety or Irritability: 1=Feels Anxious/Irritable Goose Flesh Skin: 0=Smooth Skin COWS Score: 10 S Progress Note (SOAP) Subjective: patient reporting that she is taking carvedilol lisinopril metoprolol and depakote last visited primary care provider two months ago, at [facility], patient is using pharmacies "all over the places" song writer call [phone] no record of above medication but depakote klonopin and seroquel psychiatric referral was made patient has asthma and anxiety that she is no long having klonopin steady dose daily but ativan emotional assurance given hold hypertension due to no indication of antihypertensant at this time patient has alcohol and opiate withdrawal symptoms of general body aches tremor anxiousness, Objective: 09/04/18 11:48 Vital Signs Temperature 97.8 F 09/04/18 09:26 Pulse Rate 93 H 09/04/18 09:26 Respiratory Rate 18 09/04/18 09:26 Blood Pressure 123/78 09/04/18 09:26 O2 Sat by Pulse Oximetry (%) Laboratory Last Values WBC 5.1 K/mm3 (4.0-10.0) 09/04/18 07:30 RBC 4.50 M/mm3 (3.60-5.2) 09/04/18 07:30 Hgb 14.0 GM/dL (10.7-15.3) 09/04/18 07:30 Hct 41.3 % (32.4-45.2) 09/04/18 07:30 MCV 91.6 fl (80-96) 09/04/18 07:30 MCH 31.1 pg (25.7-33.7) 09/04/18 07:30 MCHC 33.9 g/dl (32.0-36.0) 09/04/18 07:30 RDW 15.5 % (11.6-15.6) 09/04/18 07:30 Plt Count 207 K/MM3 (134-434) D 09/04/18 07:30 MPV 9.8 fl (7.5-11.1) 09/04/18 07:30 Sodium 138 mmol/L (136-145) 09/04/18 07:30 Potassium 4.2 mmol/L (3.5-5.1) 09/04/18 07:30 Chloride 108 mmol/L (98-107) H 09/04/18 07:30 Carbon Dioxide 26 mmol/L (21-32) 09/04/18 07:30 Anion Gap 4 MMOL/L (8-16) L 09/04/18 07:30 BUN 13 mg/dL (7-18) 09/04/18 07:30 Creatinine 0.7 mg/dL (0.55-1.3) 09/04/18 07:30 Creat Clearance w eGFR 88.57 (>60) 09/04/18 07:30 Random Glucose 95 mg/dL (74-106) 09/04/18 07:30 Calcium 8.7 mg/dL (8.5-10.1) 09/04/18 07:30 Total Bilirubin 0.5 mg/dL (0.2-1) 09/04/18 07:30 AST 11 U/L (15-37) L 09/04/18 07:30 ALT 15 U/L (13-61) 09/04/18 07:30 Alkaline Phosphatase 61 U/L (45-117) 09/04/18 07:30 Total Protein 6.5 g/dl (6.4-8.2) 09/04/18 07:30 Albumin 3.4 g/dl (3.4-5.0) 09/04/18 07:30 Urine Color Yellow 09/03/18 22:00 Urine Appearance Clear 09/03/18 22:00 Urine pH 6.0 (5.0-8.0) 09/03/18 22:00 Ur Specific [place] 1.017 (1.010-1.035) 09/03/18 22:00 Urine Protein Negative (NEGATIVE) 09/03/18 22:00 Urine Glucose (UA) Negative (NEGATIVE) 09/03/18 22:00 Urine Ketones Negative (NEGATIVE) 09/03/18 22:00 Urine Blood Negative (NEGATIVE) 09/03/18 22:00 Urine Nitrite Negative (NEGATIVE) 09/03/18 22:00 Urine Bilirubin Negative (<2.0 mg/dL) 09/03/18 22:00 Urine Urobilinogen 2.0 mg/dL (0.2-1.0) H 09/03/18 22:00 Ur Leukocyte Esterase Negative (NEGATIVE) 09/03/18 22:00 la bnoted Assessment: 09/04/18 11:49 alcohol and opiate withdrawal sx Plan: continue detox
[2018-09-04] MEDS ORDERED: ALBUTEROL SO4 8 GM HFA INHALER IH PRN (11:49)
[2018-09-04] MEDS ORDERED: ALBUTEROL SO4 0.083% IH SOL 2.5 MG/3 ML VIAL.NEB. NEB PRN (11:50)
[2018-09-04] MEDS: LORazepam 1 MG TABLET PO PRN ×2 (12:01→20:04)
[2018-09-04] MEDS ORDERED: METOPROLOL TARTRATE 25 MG TABLET (FP) PO PRN (12:05)
--- NOTE | 2018-09-04 12:08 | PN ---
[facility] Progress Note Note: patient reporting that she is taking metoprolol 25 mg for "my heart" patient currently has low bp and long history of asthma "my blood pressure up and down" order metoprolol 25 mg short acting prn q12h discontinue clonidine that the patient preferring metoprolol
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
[2018-09-04] MEDS: GABAPENTIN 400 MG CAPSULE (FP) PO SCH ×2 (14:30→21:36)
[2018-09-04] MEDS: THIAMINE HCL 100 MG TABLET (FP) PO SCH (21:36)
[2018-09-04] MEDS: MELATONIN 5 MG TABLETS PO PRN (21:37)
[2018-09-04] MEDS ORDERED: QUEtiapine FUMARATE 50 MG TABLET PO SCH (22:00)
[2018-09-04] MEDS: LORazepam 1 MG TABLET PO SCH (22:19)
[2018-09-05] MEDS: GABAPENTIN 400 MG CAPSULE (FP) PO SCH ×2 (06:16→15:02)
[2018-09-05] MEDS: LORazepam 1 MG TABLET PO SCH ×2 (06:16→10:41)
[2018-09-05] MEDS ORDERED: METHADONE HCL 10 MG TABLET (FOR DETOX USE ONLY) PO ONE (10:00)
[2018-09-05] MEDS ORDERED: NICOTINE 14 MG/24 HOURS TOPICAL PATCH TD SCH (10:00)
[2018-09-05] MEDS: PRENATAL VITAMINS W/ FOLIC ACID TABLET (FP) PO SCH (10:41)
[2018-09-05] MEDS: LORazepam 1 MG TABLET PO PRN (12:40)
[2018-09-05 14:29] VITALS: BP 100/74; PULSE 56; TEMP 98.4
--- NOTE | 2018-09-05 14:47 | DS ---
[facility] Detox Discharge Summary Admission Date: 09/03/18 Discharge Date: 09/05/18 - History Present History: Alcohol Dependence, Opioid Dependence Additional Comments: 48 years old female admitted on 09/03/18 for alcohol and opiate withdrawaL STABILIZATION COMPLETED DETOX [facility] - Physical Exam Results Vital Signs: Vital Signs Temperature 98.4 F 09/05/18 14:28 Pulse Rate 56 L 09/05/18 14:28 Respiratory Rate 18 09/05/18 14:28 Blood Pressure 100/74 09/05/18 14:28 O2 Sat by Pulse Oximetry (%) Pertinent Admission Physical Exam Findings: ALCOHOL AND OPIATE WITHDRAWAL SX Laboratory Last Values WBC 5.1 K/mm3 (4.0-10.0) 09/04/18 07:30 RBC 4.50 M/mm3 (3.60-5.2) 09/04/18 07:30 Hgb 14.0 GM/dL (10.7-15.3) 09/04/18 07:30 Hct 41.3 % (32.4-45.2) 09/04/18 07:30 MCV 91.6 fl (80-96) 09/04/18 07:30 MCH 31.1 pg (25.7-33.7) 09/04/18 07:30 MCHC 33.9 g/dl (32.0-36.0) 09/04/18 07:30 RDW 15.5 % (11.6-15.6) 09/04/18 07:30 Plt Count 207 K/MM3 (134-434) D 09/04/18 07:30 MPV 9.8 fl (7.5-11.1) 09/04/18 07:30 Sodium 138 mmol/L (136-145) 09/04/18 07:30 Potassium 4.2 mmol/L (3.5-5.1) 09/04/18 07:30 Chloride 108 mmol/L (98-107) H 09/04/18 07:30 Carbon Dioxide 26 mmol/L (21-32) 09/04/18 07:30 Anion Gap 4 MMOL/L (8-16) L 09/04/18 07:30 BUN 13 mg/dL (7-18) 09/04/18 07:30 Creatinine 0.7 mg/dL (0.55-1.3) 09/04/18 07:30 Creat Clearance w eGFR 88.57 (>60) 09/04/18 07:30 Random Glucose 95 mg/dL (74-106) 09/04/18 07:30 Calcium 8.7 mg/dL (8.5-10.1) 09/04/18 07:30 Total Bilirubin 0.5 mg/dL (0.2-1) 09/04/18 07:30 AST 11 U/L (15-37) L 09/04/18 07:30 ALT 15 U/L (13-61) 09/04/18 07:30 Alkaline Phosphatase 61 U/L (45-117) 09/04/18 07:30 Total Protein 6.5 g/dl (6.4-8.2) 09/04/18 07:30 Albumin 3.4 g/dl (3.4-5.0) 09/04/18 07:30 Urine Color Yellow 09/03/18 22:00 Urine Appearance Clear 09/03/18 22:00 Urine pH 6.0 (5.0-8.0) 09/03/18 22:00 Ur Specific [place] 1.017 (1.010-1.035) 09/03/18 22:00 Urine Protein Negative (NEGATIVE) 09/03/18 22:00 Urine Glucose (UA) Negative (NEGATIVE) 09/03/18 22:00 Urine Ketones Negative (NEGATIVE) 09/03/18 22:00 Urine Blood Negative (NEGATIVE) 09/03/18 22:00 Urine Nitrite Negative (NEGATIVE) 09/03/18 22:00 Urine Bilirubin Negative (<2.0 mg/dL) 09/03/18 22:00 Urine Urobilinogen 2.0 mg/dL (0.2-1.0) H 09/03/18 22:00 Ur Leukocyte Esterase Negative (NEGATIVE) 09/03/18 22:00 Valproic Acid < 3.0 ug/ml (50-100) L 09/04/18 12:00 RPR Titer Nonreactive (NONREACTIVE) 09/04/18 07:30 LAB NOTED - Treatment Hospital Course: Detox Protocol Followed, Detoxed Safely, Responded well, Discharged Condition Good, Rehab Referral Accepted Patient has Accepted a Rehab Referral to: [facility] - Medication Discharge Medications: Ambulatory Orders Aspirin 81 mg PO DAILY 06/27/18 Methadone [Dolophine -] 30 mg PO DAILY 12/14/17 hydrOXYzine PAMOATE [Vistaril -] 50 mg PO QID #90 capsule 12/14/17 Carvedilol [Coreg -] 3.125 mg PO BID #60 tablet 12/17/17 Gabapentin [Neurontin -] 400 mg PO TID 07/04/18 Quetiapine Fumarate [Seroquel -] 300 mg PO HS 07/04/18 Albuterol Sulfate Inhaler - [Ventolin HFA Inhaler -] 2 inh PO Q4H PRN #1 inhaler 07/08/18 Atorvastatin Ca [Lipitor] 80 mg PO HS #14 tablet 07/08/18 Budesonide/Formeterol Fumarate [SYMBICORT 160/4.5mcg -] 2 inh PO BID #1 inhaler 07/08/18 Lisinopril [Prinivil] 10 mg PO DAILY #14 tablet 07/08/18 Metoprolol Tartrate [Lopressor -] 25 mg PO BID #30 tablet 07/08/18 Clindamycin [Cleocin -] 300 mg PO Q6HPO #14 capsule 08/14/18 - Diagnosis (1) Alcohol dependence with uncomplicated withdrawal Current Visit: Yes Status: Acute (2) Sedative, hypnotic or anxiolytic dependence with withdrawal, uncomplicated Current Visit: Yes Status: Acute (3) Asthma Current Visit: Yes Status: Chronic Qualifiers: Asthma severity: mild Asthma persistence: intermittent Asthma complication type: with status asthmaticus Qualified Code(s): J45.22 - Mild intermittent asthma with status asthmaticus (4) CHF (congestive heart failure) Current Visit: Yes Status: Chronic Qualifiers: Heart failure type: systolic Heart failure chronicity: unspecified Qualified Code(s): I50.20 - Unspecified systolic (congestive) heart failure (5) Nicotine dependence Current Visit: Yes Status: Acute Qualifiers: Nicotine product type: cigarettes Substance use status: in withdrawal Qualified Code(s): F17.213 - Nicotine dependence, cigarettes, with withdrawal (6) Substance induced mood disorder Current Visit: Yes Status: Suspected (7) Methadone maintenance therapy patient Current Visit: Yes Status: Chronic - AMA Did Patient Leave Against Medical Advice: No
[2018-09-05] MEDS ORDERED: LORazepam 0.5 MG TABLET PO PRN (23:00)
[2018-09-05] MEDS ORDERED: LORazepam 0.5 MG TABLET PO SCH (23:00)
[2018-09-06] MEDS ORDERED: METHADONE HCL 5 MG TABLET (FOR DETOX USE ONLY) PO ONE (06:00)
== END 2018-09-05 15:15 | disposition home or self-care (01) | DRG 773 ==
LOC: YASAS 15:00 → Y3N 18:43
PROVIDERS: ADMIT Surgery; ATTEND Surgery
PROC: HZ2ZZZZ Detoxification Services for Substance Abuse Treatment (ICD-10-PCS; principal; 2018-09-03)
DX: F11.23 Opioid dependence with withdrawal (principal); F10.230 Alcohol dependence with withdrawal, uncomplicated; F13.230 Sedative, hypnotic or anxiolytic dependence with withdrawal, uncomplicated; F12.20 Cannabis dependence, uncomplicated; F17.213 Nicotine dependence, cigarettes, with withdrawal; F19.24 Other psychoactive substance dependence with psychoactive substance-induced mood disorder; F43.10 Post-traumatic stress disorder, unspecified; G47.00 Insomnia, unspecified; D50.9 Iron deficiency anemia, unspecified; M94.9 Disorder of cartilage, unspecified; I11.0 Hypertensive heart disease with heart failure; I50.20 Unspecified systolic (congestive) heart failure; M79.7 Fibromyalgia; Z86.59 Personal history of other mental and behavioral disorders; Z91.5 Personal history of self-harm; Z91.19 Patient's noncompliance with other medical treatment and regimen; Z59.0 Homelessness
CPT/HCPCS: 36415; 80053; 80164; 81003; 85027; 86593